=== PATIENT | female | born 1950 | race Caucasian/White ===

== ENCOUNTER 2024-02-11 08:37 | Outpatient (CLI) | payer MEDICARE, SELFPAY ==
[2024-02-11 09:31] LABS: Basophils Percent Auto 0.6 % (0.2-1.2); Eosinophils Absolute Auto 0.1 K/mm3 (0-0.3); Eosinophils Percent Auto 2.4 % (0-4.4); Hematocrit 39.7 % (37.0-47.0); Hemoglobin 13.4 g/dL (12.0-15.0); Lymphocytes Absolute Auto 1.93 K/mm3 (0.9-3.2); Lymphocytes Percent Auto 37.8 % (18.3-44.2); Mean Corpuscular HGB Conc 33.8 g/dl (32-36); Mean Corpuscular Volume 91.9 fl (80-100); Mean Platelet Volume 9.3 fl (7.4-10.4); Monocytes Absolute Auto 0.5 K/mm3 (0.1-0.6); Monocytes Percent Auto 9.6 % (2.6-8.5); Neutrophils Absolute Auto 2.5 K/mm3 (1.3-6.7); Neutrophils Percent Auto 49.6 % (45.5-73.1); Platelet Count Result 232 k/mm3 (150-375); Red Blood Count 4.32 M/mm3 (4.2-5.4); White Blood Count 5.1 K/mm3 (4.5-10.0)
[2024-02-11 10:05] LABS: Free T4 Free Thyroxine 1.15 ng/dL (0.78-2.19); Vitamin D 25 Hydroxy 35.8 ng/mL
[2024-02-11 10:22] LABS: Alanine Aminotransferase 14 U/L (6-35); Albumin Level 4.2 g/dL (3.5-5.1); Alkaline Phosphatase 57 U/L (38-126); Anion Gap 1 mmol/L (4-12); Aspartate Amino Transferase 23 U/L (14-36); Bilirubin,Total 0.9 mg/dL (0.2-1.3); Blood Urea Nitrogen 12 mg/dL (7-17); Carbon Dioxide 32 mmol/L (22-30); Chloride 108 mmol/L (98-107); Cholesterol 146 mg/dL (0-200); Estimated Glomerular Filt Rate > 60; Glucose 93 mg/dL (65-110); HDL Direct 49 mg/dL; Potassium 3.6 mmol/L (3.4-5.0); Sodium 141 mmol/L (137-145); Triglycerides 128 mg/dL (<150)
[2024-02-11 10:33] LABS: LDL Cholesterol Direct 59 mg/dL
[2024-02-11 11:29] LABS: Folic Acid 17.7 ng/mL (2.76->20)
== END 2024-02-11 08:38 | disposition home or self-care (01) ==
LOC: ANHLAB 08:43
PROVIDERS: PCP Emergency Medicine; Visit Provider Internal Medicine
DX: E78.5 Hyperlipidemia, unspecified (principal); E55.9 Vitamin D deficiency, unspecified; E79.89 Other specified disorders of purine and pyrimidine metabolism
CPT/HCPCS: 36415; 80053; 80061; 82306; 82607; 82746; 84439; 84443; 85025

== ENCOUNTER 2024-06-27 10:37 | Outpatient (CLI) | payer MEDICARE, SELFPAY ==
--- OUTSIDE RECORDS SUMMARY | 2024-06-27 10:51 | XMS_ITS | Data Portability ---
Author Organization [facility] Address [address] [place] [address] Care Team Providers Care Male Infertility Specialist Name Role Phone LISHANOHEMYLainey AURELIANO Primary Care Provider [phone] Assessment Encounter Date Assessment Date Assessment LastModified by Organization Details LastModified Time 06/05/2023 06/05/2023 Annual gynecological exam performed. Patient will come back in a year unless there are new symptoms. Not available 06/05/2023 11:17:20 Plan of Treatment Reminders Order Date Submit Date Provider Last Modified By Organization Details Last Modified Time Details Appointments None record ed. Lab None record ed. Referral None record ed. Procedures None record ed. Surgeries None record ed. Imaging None record ed. Medication Orders None record ed. Patient TargetsNo targets recorded. Patient InstructionsNo instructions recorded. Reason for Referral None Reported. Procedures Surgical History Date Name Laterality Status Provider Name and Address Organization Details Recorded Time 02/08/19 00 Date of Last Pap Smear completed [facility] 06/05/2023 11:19:47 02/08/18 92 [facility]/05[facility]23 11:22:48 08/08/18 72 [facility] 06/05/2023 11:22:07 Tubal Ligation completed [facility] 06/05/2023 11:22:20 Imaging Results None recorded. Procedure Notes None recorded. Medical Equipment None Reported. Allergies Allergen ID Allergen Name Allergen Category Reaction Reaction Severity Criticality Documentation Date Start Date Code Code System Note Provider Name and Address Organization Details Recorded Time 60372 codeine medicatio n Not available Not available Not available 06/05/2023 2670 RxNorm Flores [facility] 11:18:40 Medications Name Sig Start Date Stop Date Status Note LastModified by Organization Details LastModified Time atorvastatin 10 mg tablet active Not Available Not Available Not Available nifedipine ER 30 mg tablet,extende d release Take 1 tablet every day by oral route. active Not Available Not Available No t Available calcium active Not Available Not Avail able Not Available Vitals Date Recorded Body height Body mass index (BMI) Body weight Systolic blood pressure Diastolic blood pressure Provider Name and Address Organization Details Last Updated DateTime 06/05/2023 162.56 cm 28.2 kg/m2 11489.59 g 164 mm[Hg] 84 mm[Hg] Flores [facility] 11:18:22 Social History Question Answer Notes LastModified by Organizat ion Details LastModified Time Tobacco Smoking Status Never Smoker [facility] 06/05/2023 11:21:46 Are You Blind Or Do You Have Difficulty Seeing? No Information not available 06/05/2023 Are You Deaf Or Do You Have Serious Difficulty Hearing? No Information not available 06/05/2023 Do You Have Difficulty Walking Or Climbing Stairs? No Information not available 06/05/2023 Sex: Unknown Functional Status Question Answer Note LastModified by Organizat ion Details LastModified Time What is your level of alcohol consumption? Occasional Information not available 06/05/2023 Are you able to walk? YESWOREST Information not available 06/05/2023 Are you able to care for yourself? Yes Information not available 06/05/2023 Do you have difficulty dressing or bathing? No Information not available 06/05/2023 Mental Status None recorded. Family History Nothing Reported. Medical History Condition Response Allergies (Food, seasonal, environmental ) N Other N Breast Cancer N Drug/Latex Allergies/Reactions N Blood Transfusion N Dermatologic Disorders N Lung Disease N Defects or Inherited Disease N Breast Problem N Gestational Diabetes N Hematologic disorders N Anesthesia Complications N History of STI N Deep Vein Thrombosis N Polycystic ovary syndrome N Anxiety Disorder N Autoimmune disease N Arthritis N Infertility N Polyps N Acid Reflux (GERD) N History of abnormal pap N Cancer N Stroke N Varicosities N Neurologic/Epilepsy N Endometriosis N High Cholesterol Y Headaches N Fibromyalgia N Kidney Disease N Heart Problems N Kidney or Bladder Problems N Thyroid Problems N GI Problems N Eating Disorder N Anemia N Art (IVF or FET) N Psychiatric Illness N Ovarian Cancer N Diabetes N Pulmonary (TB, Asthma) N Hepatitis/Liver Disease N No Past Medical History N Eczema N Urinary Tract Infection N Abuse/Domestic Violence N Asthma N Trauma/Violence N Depression/ depression N Heart Disease N Pre-Eclampsia N Hypertension Y Osteoporosis N Thrombophilias N Gynecological History Statement/Question Response If Post Menopausal, Age at Menopause 48 Abnormal Pap N Sexually Active? Y STIs/STDs N Menses Monthly N Age of first menstrual cycle 15 HPV Vaccine N Date of Last Pap Smear 02/08/1999 Sexual Problems? N Current Control Method Menopause LMP Unknown Obstetrics History GPAL:G 1 P 1 0 0 1 Type Value Full Term 1 Living 1 Total 1 Past Encounters Encounter ID Performer Location Encounter Start Date Encounter Closed Date Diagnosis/Indication Diagnosis SNOMED-CT Code Diagnosis ICD10 Code Diagnosis Note [id number] Consuelo Saucedo , [facility] [address] [address] 06/05/2023 10:50:05 06/05/2023 11:45:32 Gynecologic examination 75291996 Z01.419 Take Calcium with Vitamin D 12-1500mg daily. Do monthly self breast exams. It is advised to get annual flu shot in the fall and she could obtain at [facility] or [facility] care clinic. If you haven't received the Tdap vaccine in the last 10 years you should obtain one as well. Have mammogram yearly, bone density every 2-3 years and colonoscop y every 5-10 years depending on findings and history. Engage in daily exercise of low impact aerobic exercise 45-60 minutes 4-5 times weekly. Avoid tobacco and illicit drugs as well as using moderation with alcohol intake less than 1-2 8 oz beverages daily. This lifestyle behavior pattern will lead to less health conditions and longer life span. If BMI greater than 25 weight watchers or dietary consult advised. Questions have been answered. Patient appears to understand instructio ns, but if you have any further questions call or respond to this email Pap/hpv USPSTF recommends against screening for cervical cancer in women older than 65yo, those who've had a hysterecto my for non-cancer indication s, & who have had adequate prior screening & are not otherwise at high risk for cervical cancer. STD Screen declinedGe netic Screen discussedC olon Screen PCPDexa Screen [facility] PCP RTO if any parts consultant/female related issues.Con tinue q1-2yr mammo screeings. Continue yearly visits with PCP Screening mammography 24 [id number] Z12.31 Completed per pt via PCP orders Health Concerns Section Related Observation LastModified by Organization Detai ls LastModified Time None Recorded Concern Status LastModified by Organization Details LastModified Time None Recorded Advance Directives Directive None Recorded Payers Encounter Date Sequence Insurance Name Policy Number Policy Walton Covered Member ID Walton Member ID Guarantor Name 06/05/2023 1 [facility] (MEDICARE REPLACEMENT/A DVANTAGE - HMO) [id number] Maeve Garcia [id number] Maeve Garcia Notes Date Note Type Note Provider Name and Address Organization Details Recorded Time 06/05/2023 text/html Annual Fish And Wildlife Warden Post-MenopausalRe ported bypatient.Menopau rené Symptoms:no menopausal symptoms; normal vaginal lubrication Vaginal Bleeding:history of menopause having occurred; no history of post menopausal bleeding Urinary Symptoms:no hematuria; no incontinence; no nocturia; no urinary frequency Vulva:no genital lesion; no vulvar atrophy Vagina:normal vaginal discharge; no vaginal atrophy Breast:no breast lump; no nipple discharge; no breast pain Sexual Complaints:no sexual complaints Psychological Symptoms:no depression; no anxiety Preventive Measures:encourag e regular mammograms starting age 40; encourage self breast examination; encourage regular exercise; encourage no tobacco use; mammogram performed within the past year; history of recent colonoscopy Consuelo Saucedo, [facility] [address], [place], [address], [facility] 06/05/2023 11:45:04 OBGyn Episode Ob Episode Information Episode Created Date Number of Fetuses Patient Bloodtype Patient rh Status Prepregnancy Weight lbs Domestic Partner Domestic Partner Phone Father Name Aircraft Mechanic Electrical And Radio Status 06/05/19 24 1 CLOSED Fetus Data First Name Last Name Admitted to NICU Weight (g) Sex Living Outcome Pediatric Complications Fetus ID Race Codes Race Delivery Type 2806.37 3704 M Full Term [id number] Vaginal Delivery Arnold Calculation Initial Arnold Date Initial Exam Date Initial Exam Provider Initial Ultrasound Date Last Menstrual Period Date Ultra Sound Weeks Gestation 0 Eighteen To Twenty Week Arnold Update Ultra Sound Date Fundal Height At Umbil Quickening Date Ultra Sound Latest Weeks Gestation Final Arnold Confirmed By Final Arnold Confirmed Date Final Arnold Date Ultra Sound Latest Days Gestation 0 0 Menstrual History Last Menstrual Date Menses Monthly On Bcp Conception Prior Menses Frequency Hcg Plus Date Menarche Onset Age Delivery Information Delivery Date Delivery Type Labor Anesthesia Weeks Gestation Incision Type Labor Labor Length Hrs Delivered By Post Complications Tubal Sterilization Discharge Date Comments 2 Discharge Information Feeding Method Contraceptive Method Maternal HG B and HCT Levels
[2024-06-27 11:26] LABS: Basophils Percent Auto 0.6 % (0.2-1.2); Eosinophils Absolute Auto 0.1 K/mm3 (0-0.3); Hematocrit 38.8 % (37.0-47.0); Hemoglobin 12.8 g/dL (12.0-15.0); Immature Granulocyte Absolute 0.01 K/mm3 (0.00-0.031); Immature Granulocyte Percent A 0.2 % (0-0.5); Lymphocytes Absolute Auto 1.48 K/mm3 (0.9-3.2); Lymphocytes Percent Auto 30.2 % (18.3-44.2); Mean Corpuscular Hemoglobin 30.5 pg (26-34); Mean Corpuscular Volume 92.6 fl (80-100); Mean Platelet Volume 9.1 fl (7.4-10.4); Monocytes Absolute Auto 0.5 K/mm3 (0.1-0.6); Monocytes Percent Auto 9.2 % (2.6-8.5); Neutrophils Absolute Auto 2.8 K/mm3 (1.3-6.7); Neutrophils Percent Auto 57.8 % (45.5-73.1); Platelet Count Result 241 k/mm3 (150-375); Red Blood Count 4.19 M/mm3 (4.2-5.4); Red Cell Distribution Width 12.5 % (11.5-14.5); White Blood Count 4.9 K/mm3 (4.5-10.0)
[2024-06-27 11:46] LABS: Alanine Aminotransferase 18 U/L (6-35); Albumin Level 4.1 g/dL (3.5-5.1); Alkaline Phosphatase 48 U/L (38-126); Anion Gap 7 mmol/L (4-12); Aspartate Amino Transferase 26 U/L (14-36); Bilirubin,Total 0.7 mg/dL (0.2-1.3); Blood Urea Nitrogen 12 mg/dL (7-17); Calcium 8.7 mg/dL (8.4-10.2); Carbon Dioxide 25 mmol/L (22-30); Chloride 109 mmol/L (98-107); Cholesterol 155 mg/dL (0-200); Estimated Glomerular Filt Rate > 60; Glucose 113 mg/dL (65-110); HDL Direct 51 mg/dL; Potassium 3.8 mmol/L (3.4-5.0); Sodium 141 mmol/L (137-145); Triglycerides 188 mg/dL (<150)
[2024-06-27 11:57] LABS: LDL Cholesterol Direct 61 mg/dL
[2024-06-27 11:59] LABS: Free T4 Free Thyroxine 1.11 ng/dL (0.78-2.19); Vitamin D 25 Hydroxy 37.4 ng/mL
[2024-06-27 12:52] LABS: Folic Acid 19.9 ng/mL (2.76->20)
== END 2024-06-27 10:38 | disposition home or self-care (01) ==
LOC: ANHLAB 10:38
PROVIDERS: PCP Internal Medicine; Visit Provider Internal Medicine
DX: E78.5 Hyperlipidemia, unspecified (principal); E55.9 Vitamin D deficiency, unspecified; R79.89 Other specified abnormal findings of blood chemistry
CPT/HCPCS: 36415; 80053; 80061; 82306; 82607; 82746; 84439; 84443; 85025

== ENCOUNTER 2024-09-11 09:03 | Outpatient (CLI) | payer MEDICARE, SELFPAY ==
--- NOTE | ~2024-09-11 | MM_ITS ---
EXAMINATION: MM screening skyla BI w lemuel HISTORY: Screening TECHNIQUE: Craniocaudal and mediolateral oblique 3-D tomosynthesis images were obtained and synthetic 2-D images were generated. CAD analysis was submitted and interpreted. COMPARISON: None available. BREAST PARENCHYMAL COMPOSITION: The breasts are heterogeneously dense, which may obscure small masses . FINDINGS: There is no evidence of suspicious mass, calcification, or architectural distortion to sug gest malignancy in either breast. IMPRESSION: 1. No mammographic evidence of malignancy. 2. Recommend routine screening mammography in one year. BI-RADS Category 1: Negative Reviewed, dictated and finalized at location B.
== END 2024-09-11 09:04 | disposition home or self-care (01) ==
LOC: ANHIMG 09:06
PROVIDERS: PCP Internal Medicine; Visit Provider Internal Medicine
DX: Z12.31 Encounter for screening mammogram for malignant neoplasm of breast (principal)
CPT/HCPCS: 77063; 77067

== ENCOUNTER 2024-10-24 07:18 | Outpatient (CLI) | payer MEDICARE, SELFPAY ==
[2024-10-24 07:52] LABS: Hematocrit 40.2 % (37.0-47.0); Hemoglobin 13.3 g/dL (12.0-15.0); Immature Granulocyte Percent A 0.4 % (0-0.5); Lymphocytes Absolute Auto 1.72 K/mm3 (0.9-3.2); Mean Corpuscular HGB Conc 33.1 g/dl (32-36); Mean Corpuscular Hemoglobin 30.4 pg (26-34); Mean Corpuscular Volume 92.0 fl (80-100); Nucleated Red Blood Cells Absolute Auto 0.000 K/mm3 (0.0-0.012); Nucleated Red Blood Cells Perc 0.0 % (0.0-0.2); Platelet Count Result 219 k/mm3 (150-375); Red Blood Count 4.37 M/mm3 (4.2-5.4); White Blood Count 5.6 K/mm3 (4.5-10.0)
[2024-10-24 08:12] LABS: Alanine Aminotransferase 14 U/L (6-35); Albumin Level 4.3 g/dL (3.5-5.1); Alkaline Phosphatase 66 U/L (38-126); Anion Gap 6 mmol/L (4-12); Aspartate Amino Transferase 25 U/L (14-36); Bilirubin,Total 0.8 mg/dL (0.2-1.3); Blood Urea Nitrogen 10 mg/dL (7-17); Calcium 8.7 mg/dL (8.4-10.2); Carbon Dioxide 28 mmol/L (22-30); Chloride 106 mmol/L (98-107); Cholesterol 145 mg/dL (0-200); Estimated Glomerular Filt Rate > 60; Glucose 94 mg/dL (65-110); HDL Direct 48 mg/dL; Potassium 4.1 mmol/L (3.4-5.0); Sodium 140 mmol/L (137-145); Total Protein 7.7 g/dL (6.3-8.2); Triglycerides 111 mg/dL (<150)
[2024-10-24 08:49] LABS: Thyroid Stimulating Hormone 4.870 uIU/mL (0.465-4.680)
[2024-10-24 09:10] LABS: Free T4 Free Thyroxine 1.12 ng/dL (0.78-2.19)
[2024-10-24 09:24] LABS: Vitamin B12 785.0 pg/mL (239-931)
== END 2024-10-24 07:19 | disposition home or self-care (01) ==
LOC: ANHLAB 07:21
PROVIDERS: PCP Internal Medicine; Visit Provider Internal Medicine
DX: E78.5 Hyperlipidemia, unspecified (principal); E55.9 Vitamin D deficiency, unspecified; R79.89 Other specified abnormal findings of blood chemistry
CPT/HCPCS: 36415; 80053; 80061; 82306; 82607; 82746; 84439; 84443; 85025

== ENCOUNTER 2024-12-13 06:57 | Emergency (ER) | payer MEDICARE, SELFPAY ==
--- NOTE | ~2024-12-13 | CT_ITS ---
EXAMINATION: CTA abd aorta runoff DATE: 12/13/2024 11:38 INDICATION: Left lower limb pain TECHNIQUE: Computed tomographic angiography (CTA) of the abdominal, pelvis, and both lower extremities was performed with 100 mL Omnipaque 350 intravenous contrast. Automated exposure control and iterative reconstruction technique were employed. The dose-length product was 857.23 mGy-cm. COMPARISON: None. FINDINGS: ABDOMINAL AORTA AND ITS BRANCHES: There is small amount of scattered nonhemodynamically significant atherosclerotic plaque along the normal caliber abdominal aorta. The celiac axis, superior and inferior mesenteric and bilateral renal arteries are all patent with minimal nonhemodynamically significant plaque at the early bifurcation of the left renal artery. PELVIC VASCULATURE: Minimal nonhemodynamically significant atherosclerotic plaque along the right internal iliac artery. The left internal iliac artery and bilateral common and external iliac arteries are widely patent throughout with no evident atherosclerotic plaque. RIGHT LOWER EXTREMITY: Arteries of the right lower limb are widely patent with no evident atherosclerotic plaque and with three-vessel runoff to the ankle. LEFT LOWER EXTREMITY: Arteries of the left lower limb are widely patent with no evident atherosclerotic plaque and with three-vessel runoff to the ankle. ADDITIONAL FINDINGS: Mild dependent atelectasis in bilateral lower lobes. Heart size is normal. No pericardial or pleural effusion. Status post cholecystectomy. Liver, spleen, pancreas, bilateral adrenal glands and kidneys are normal. Mild diverticulosis along the sigmoid colon without adjacent from trace stranding to suggest diverticular colitis. No bowel obstruction. Bladder, uterus and bilateral adnexa are unremarkable. No free intraperitoneal gas or fluid. No pathologically enlarged abdominal or pelvic lymphadenopathy. Moderate to severe lower lumbar spondylosis with chronic appearing mild L4 compression fracture with 20% anterior vertebral disc height loss and Schmorl's node along the superior endplate of L5. IMPRESSION: 1. No hemodynamically significant atherosclerotic plaque major arteries of the abdomen, pelvis or in the arteries of either lower limb with bilateral three- vessel runoff to the ankle. Reviewed, dictated and finalized at location A. [employer] IMPRESSION: 1. No hemodynamically significant atherosclerotic plaque major arteries of the abdomen, pelvis or in the arteries of either lower limb with bilateral three-v essel runoff to the ankle.
--- NOTE | ~2024-12-13 | US_ITS ---
EXAMINATION: US venous doppler LE , 12/13/2024 9:13 [employer] HISTORY: r/o DVT Comparison: None Technique: Goins-scale and color Doppler images were attempted of the lower saphenofemoral junction, common femoral vein,superficial femoral vein, proximal deep femoral vein, proximal deep femoral vein, popliteal vein and posterior tibial veins. Findings: Deep Venous System:Normal flow, augmentation and compressibility. No echogenic thrombus identified. The contralateral saphenofemoral junction appears unremarkable. Superficial Venous SystemNo superficial thrombophlebitis. Soft tissues: Soft tissues are unremarkable. Impression: Negative for DVT. Reviewed, dictated and finalized at location P. RVISOR BRIAR SHOP Impression: Negative for DVT.
[2024-12-13 07:07] VITALS: BP 168/68; PULSE 63; RESP 18; TEMP 36.6; O2SAT 100
--- NOTE | 2024-12-13 08:47 | ED_ITS ---
HPI - Extremity Injury (Lower) General Chief Complaint: Extremity Injury, Lower Stated Complaint: LEG PAIN Time Seen by Provider: 12/13/24 08:17 Source: patient and family ( Felipe) Limitations: no limitations History of Present Illness HPI Narrative: Patient presents with left calf pain that is nonradiating it into left posterior lateral thigh and buttock pain. She denies any karina acute back pain only some chronic pain. No fall, trauma, injury. She is not on anticoagulation. No history of DVT or PE. She denies any edema. She has been taking Tylenol 500 mg tablets q4 hour. She is also on atorvastatin, nifedipine, and Vitamin B12. Related Data Allergies Allergy/AdvReac Type Severity Reaction Status Date / Time codeine AdvReac Intermediate syncope Verified 12/13/24 08:56 PMFSH Past Medical History Medical History On statin therapy Social History Social History Social History: Living arrangements: with family Additional living arrangements comments: Felipe Exam 2 Narrative: GENERAL: Well-appearing, well-nourished, and in no acute distress. HEAD: Normocephalic, atraumatic. EYES: Non injected, non icteric ENT: Nares clear, no rhinorrhea or epistaxis. Gross auditory acuity intact. NECK: Supple. No meningismus. CHEST: Speaking in full sentences. No respiratory distress. HEART: Regular rate and rhythm. . ABDOMEN: Soft, nondistended. EXTREMITIES: Normal range of motion. No lower extremity edema. Strong DP pulse L foot. Compartments soft. No palpable cord. SKIN: Warm, dry, no rash. No overlying skin changes. No ecchymosis. No laceration. NEURO: No focal deficits. Alert and oriented. Answering questions. Following commands. Normal speech without aphasia or dysarthria. PSYCH: Normal mood and affect. Course Vital Signs Vital signs: Vital Signs Temperature 97.8 F 12/13/24 07:07 Pulse Rate 63 12/13/24 07:07 Respiratory Rate 18 12/13/24 07:07 Blood Pressure 168/68 H 12/13/24 07:07 Pulse Oximetry 100 12/13/24 07:07 Oxygen Delivery Room Air 12/13/24 07:07 Temperature 97.8 F 12/13/24 07:07 Pulse Rate 74 12/13/24 09:46 Respiratory Rate 18 12/13/24 09:46 Blood Pressure 179/64 H 12/13/24 09:46 Pulse Oximetry 96 12/13/24 09:46 Oxygen Delivery Room Air 12/13/24 07:07 MDM - Extremity Injury (Lower) MDM Narrative Medical decision making narrative: Patient presents with left leg pain. She reports it started in her left calf that has progressed proximally to the knee and posterior lateral thigh over the past 4 days. No fall/trauma/injury. In the emergency department she is afebrile vital signs notable for hypertension. CBC with mild abnormalities on the differential but otherwise without anemia, thrombocytopenia. Normal renal function. BNP mildly elevated but not to a degree to suggest acute heart failure especially given the reference range of the assay for patient's age. Considered vascular insufficiency/peripheral vascular disease but no symptoms of claudication and good pulses distally with no skin or temperature changes. Patient reports some chronic back pain but otherwise reports distribution of pain in her calf and posterio-lateral left thigh. Still having pain after analgesic medication. CTA run off study ordered. There is unexpected IT downtime during patient's ED visit which lengthen's stay. Otherwise work up unremarkable. Stable for DC. Advised follow up with PCP. Prescribed OTC analgesic medication and a muscle relaxer to use QHS, short course. Differential Diagnosis Differential diagnosis: Likely other (PAD/ischemic limb; DVT, symptomatic anemia, thrombocytopenia, electrolyte abnormality, rhabdomyolysis; sprain/strain; myalgia; neuropathy; radiculopathy; sciatica) Lab Data Attestation: I reviewed the patient's lab results. 12/13/24 09:09 12/13/24 09:09 Labs: Lab Results 12/13/24 Range/Units 09:09 WBC 5.1 (4.5-10.0) K/mm3 RBC 4.35 (4.2-5.4) M/mm3 Hgb 13.4 (12.0-15.0) g/dL Hct 39.1 (37.0-47.0) % MCV 89.9 (80-100) fl MCH 30.8 (26-34) pg MCHC 34.3 (32-36) g/dl RDW 11.9 (11.5-14.5) % Plt Count 235 (150-375) k/mm3 MPV 8.9 (7.4-10.4) fl Immature Gran % (Auto) 0.2 (0-0.5) % Neut % (Auto) 54.9 (45.5-73.1) % Lymph % (Auto) 33.3 (18.3-44.2) % Imperial % (Auto) 8.6 H (2.6-8.5) % Eos % (Auto) 2.2 (0-4.4) % Baso % (Auto) 0.8 (0.2-1.2) % Lymph # (Auto) 1.70 (0.9-3.2) K/mm3 Imperial # (Auto) 0.4 (0.1-0.6) K/mm3 Eos # (Auto) 0.1 (0-0.3) K/mm3 Baso # (Auto) 0.0 (0.0-0.1) K/mm3 Abs Immat Gran (auto) 0.01 (0.00-0.031) K/mm3 Absolute Neuts (auto) 2.8 (1.3-6.7) K/mm3 Absolute Nucleated RBC 0.000 (0.0-0.012) K/mm3 Nucleated RBC % 0.0 (0.0-0.2) % PT 13.0 (11.1-14.7) Seconds INR 1.0 APTT 27.9 (22.3-36.8) Seconds Sodium 137 (137-145) mmol/L Potassium 3.4 (3.4-5.0) mmol/L Chloride 106 (98-107) mmol/L Carbon Dioxide 24 (22-30) mmol/L Anion Gap 7 (4-12) mmol/L BUN 14 (7-17) mg/dL Creatinine 0.62 L (0.7-1.0) mg/dL Estim Creat Clear Calc 66 ml/min Estimated GFR > 60 (59 - ) Glucose 102 (65-110) mg/dL Calcium 9.1 (8.4-10.2) mg/dL Magnesium 1.9 (1.6-2.3) mg/dL Total Bilirubin 1.1 (0.2-1.3) mg/dL AST 26 (14-36) U/L ALT 16 (6-35) U/L Alkaline Phosphatase 53 (38-126) U/L Total Creatine Kinase 125 (30-135) U/L NT-Pro-B Natriuret Pep 213 H (19.9-100) pg/mL Total Protein 7.9 (6.3-8.2) g/dL Albumin 4.6 (3.5-5.1) g/dL Imaging Data Radiologist's impression: CTA abd/pelvis runoff study (interpretation initially handwritten due to IT downtime issues): No sign. stenosis with (?) 3 vessel runoff. Impressions Venous Doppler Study 12/13/24 09:43 Impression: Negative for DVT. Aorta w/Runoff CTA 12/13/24 13:55 IMPRESSION: 1. No hemodynamically significant atherosclerotic plaque major arteries of the abdomen, pelvis or in the arteries of either lower limb with bilateral three- vessel runoff to the ankle. Discharge Plan Discharge Clinical Impression: Left leg pain Patient Disposition: Home Condition: Stable Instructions: Antibiotic Form, Leg Pain (ED) Additional Instructions: No clear cause of your symptoms based on your labs and imaging which included an Ultrasound (negative for DVT, blood clot in veins) as well as CTA of your abdominal aortic blood vessel and run off study in the legs looking at the arteries. Follow up with your primary care physician as this may require alternative pain meds, physical therapy, advanced imaging/work, etc. . In the interim, it is safe to take both acetaminophen/Tylenol (maximum 4000mg/day) with NSAIDs like ibuprofen. Return to the ED with new/worsening symptoms. In particular, if you lose control of your bowel/bladder or have numbness/tingling in your genitals. A small dose muscle relaxer may help at night. Patient Language: Irish Prescriptions: New acetaminophen 500 mg capsule 1,000 mg PO Q6H PRN (Reason: pain) Qty: 30 0RF ibuprofen 600 mg tablet 600 mg PO TID PRN (Reason: pain) Qty: 30 0RF methocarbamol 500 mg tablet 500 mg PO HS Qty: 7 0RF Follow-up/Referrals: Yuliana,MD Bakari [Primary Care Provider, Unknown] Time of Disposition: 13:26
--- OUTSIDE RECORDS SUMMARY | 2024-12-13 08:55 | XMS_ITS | Data Portability ---
Author Organization [facility] [place] Address [address] [place] [address] Care Team Providers Care Wheel Truer Name Role Phone LISHANOHEMYLaineyTAEJYOTSNA Primary Care Provider Assessment Encounter Date Assessment Date Assessment LastModified [...] 00 Date of Last Pap Smear completed [facility] 06/05/2023 11:19:47 02/08/18 92 [facility]/05[facility]2023 11:22:48 08/08/18 [address] [facility] 06/05/2023 11:22:07 Tubal Ligation completed [facility] 06/05/2023 11:22:20 Imaging Results None recorded. Procedure Notes None recorded. Medical Equipment None Reported. Allergies Allergen ID Allergen Name Allergen Category Reaction Reaction Severity Criticality Documentation Date Start Date Code Code System Note Provider Name and Address Organization Details Recorded Time 89770 codeine medicatio n Not available Not available Not available 06/05/2023 2670 RxNorm Flores [facility] 11:18:40 Medications Name Sig Start Date [...] Body mass index (BMI) Body weight Systolic And Diastolic Provider Name and Address Organization Details Last Updated DateTime 06/05/2023 162.56 cm 28.2 kg/m2 58354.59 g 164/84 mm[Hg] Flores [facility] 06/05/2023 11:18:22 Social History Question Answer Notes LastModified by AnTuTuizat ion Details LastModified Time Tobacco Smoking Status Never Smoker Flores [facility] 06/05/2023 11:21:46 Are You Blind Or [...] not available 06/05/2023 Are you able to walk independently without assistance or assistive devices? YESWOREST Information not available 06/05/2023 Are you able to care for yourself independently? Yes Information not available 06/05/2023 Do you have difficulty dressing, bathing, grooming, or toileting? No Information not available 06/05/2023 Mental Status [...] Diagnosis SNOMED-CT Code Diagnosis ICD10 Code Diagnosis IMO Codes Diagnosis Note [id number] Consuelo Saucedo , [facility] [address] [address] 06/05/2023 10:50:05 06/05/2023 11:45:32 Gynecologic examination [id number] Z01.419 Take Calcium with Vitamin D 12-1500mg daily. Do monthly self breast exams. It is advised to get annual flu shot in the fall and she could obtain at [facility] or [facility] clinic. If you haven't received the Tdap [...] Screen [facility] PCP RTO if any manager storage/female related issues.Con tinue q1-2yr mammo screeings. Continue yearly visits with PCP Screening mammography 24 625094 Z12.31 Completed per pt via PCP orders Health Concerns Section Related Observation LastModified by Organization Detai ls LastModified Time None Recorded Concern Status LastModified by Organization Details LastModified Time None Recorded Advance Directives Directive None Recorded Payers Insurance Date Sequence Insurance Name Policy Number Policy Walton Covered Member ID Walton Member ID Guarantor Name 06/08/2023 1 [facility] (MEDICARE REPLACEMENT/A DVANTAGE - HMO) [id number] Maeve Garcia [id number] Maeve Garcia Notes Date Note Type Note Provider Name and Address Organization Details Recorded Time 4 text/html Annual Scientific Specialist Post-MenopausalReported by PatientGenitourinary symptomsFor menopausal symptoms, patient reportsno menopausal symptomsandnormal vaginal lubrication. For vaginal bleeding, patient reportshistory of menopause having occurredandno history of post menopausal bleeding. For urinary symptoms, patient reportsno hematuria,no incontinence,no nocturia, andno urinary frequency. For vulva, patient reportsno genital lesionandno vulvar atrophy. For vagina, patient reportsnormal vaginal dischargeandno vaginal atrophy.Breast symptomsFor breast, patient reportsno breast lump,no nipple discharge, andno breast pain.Psychological symptomsFor sexual complaints, patient reportsno sexual complaints. For psychological symptoms, patient reportsno depressionandno anxiety.Preventative measuresFor preventive measures, patient reportsencourage regular mammograms starting age 40,encourage self breast examination,encourage regular exercise,encourage no tobacco use,mammogram performed within the past year, andhistory of recent colonoscopy. Consuelo Saucedo, [facility] [address], [place], [address], [facility] 06/05/2023 11:45:04 OBGyn Episode Ob Episode Information Episode Created Date Number of Fetuses Patient Bloodtype Patient rh Status Prepregnancy Weight lbs Domestic Partner Domestic Partner Phone Father Name Identity Management Consultant Status 06/05/19 24 1 CLOSED Fetus Data First Name Last Name Admitted to NICU Weight (g) Sex Living Outcome Pediatric Complications Fetus ID Race Codes Race Delivery Type 2806.37 3704 M Full Term [id number] Vaginal Delivery Arnold Calculation Initial Arnold Date [...]
--- OUTSIDE RECORDS SUMMARY | 2024-12-13 08:55 | XMS_ITS | Data Portability ---
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 Name Role Phone BAKARI BRIDGES Primary Care Provider [phone] [facility] Fitness Leader Assessment Encounter Date Assessment Date Assessment LastModified by Organization Details LastModified Time 06/15/2023 06/15/2023 12/08/2022: Gluc 119, ALT/AST 39/43 Not available 06/14/2023 18:42:08 11/04/2023 11/04/2023 12/08/2022: Gluc 119, ALT/AST 39/43 06/16/2023: Stable Hep panel/GGT: Neg Not available 11/04/2023 14:10:51 02/22/2024 02/22/2024 12/08/2022: Gluc 119, ALT/AST 39/43 06/16/2023: Stable Hep panel/GGT: Neg 02/11/2024: TSH 6.150H Not available 02/22/2024 10:04:38 07/04/2024 07/04/2024 12/08/2022: Gluc 119, ALT/AST 39/43 06/16/2023: Stable Hep panel/GGT: Neg 02/11/2024: TSH 6.150H 06/27/2024: Gluc 113 TG 188 Not available 07/04/2024 10:57:39 10/31/2024 10/31/2024 12/08/2022: Gluc 119, ALT/AST 39/43 06/16/2023: Stable Hep panel/GGT: Neg 02/11/2024: TSH 6.150H 06/27/2024: Gluc 113 TG 188 10/24/2024: TSH 4.80H, FT4 1.12 Not available 10/31/2024 12:40:48 Plan of Treatment Reminders Order Date Submit Date Provider Last Modified By Organization Details Last Modified Time Details Appointments Any 15 2025 09:15A M Bakari aguilar MD Not available Not available Not available Lab lipid panel, serum 2024 025 [place] [address] [facility], [address] [place], [address], 10/31/2024 12:46:29 CMP, serum or plasma 2024 025 [place] [address] [facility], [address] [place], [address], 10/31/2024 12:46:30 CBC w/ auto diff 2024 025 [place] [address] [facility], [address] [place], [address], 10/31/2024 12:46:30 TSH + free T4, serum [address] [facility], [address] [place], [address], 10/31/2024 12:46:30 vitamin D, 25-hydrox y, total, serum 2024 025 [place] [address] [facility], [address] [place], [address], 10/31/2024 12:46:29 vitamin B12 + folate, serum or blood [address] [facility], [address] [place], [address], 10/31/2024 12:46:29 vitamin D, 25-hydrox y, total, serum 2024 025 [facility], [address] [facility] [place], [address], 10/24/2024 12:51:38 lipid panel, serum 2024 025 [facility], [address] [facility] [place], [address], 10/24/2024 11:07:08 CMP, serum or plasma 2024 025 [facility], [address] [facility] [place], [address], 10/24/2024 11:05:12 CBC w/ auto diff 2024 025 [facility], [address] [place], [address], 10/24/2024 11:07:08 TSH + free T4, serum 2024 025 [facility], [address] [facility] [place], [address], 10/24/2024 11:07:08 vitamin B12 + folate, serum or blood 2024 025 [facility], [address] [facility] [place], [address], 10/24/2024 12:51:37 vitamin D, 25-hydrox y, total, serum [address] [facility], [address] [place], [address], 10/23/2024 10:06:49 lipid panel, serum [address] [facility], [address] [place], [address], 10/23/2024 10:06:49 CMP, serum or plasma 2024 025 [email or web address] [facility], [address] [place], [address], 10/23/2024 10:06:50 CBC w/ auto diff 2024 025 [place] [address] [facility], [address] [place], [address], 10/23/2024 10:06:50 TSH + free T4, serum 2024 025 [place] [address] [facility], [address] [place], [address], 10/23/2024 10:06:50 vitamin B12 + folate, serum or blood 2024 025 [place] [address] [facility], [address] [place], [address], 10/23/2024 10:06:49 vitamin D, 25-hydrox y, total, serum 2023 024 [place] [address] [facility], [address] [place], [address], 11/17/2023 14:54:57 lipid panel, serum 2023 024 SHALINI [facility], [address] [place], [address], 11/08/2023 20:22:43 CMP, serum or plasma 2023 024 SHALINI [facility], [address] [place], [address], 11/08/2023 20:22:49 CBC w/ auto diff 2023 024 SHALINI [facility], [address] [place], [address], 11/08/2023 12:17:46 TSH + free T4, serum 2023 024 [email or web address] [facility], [address] [place], [address], 11/17/2023 14:54:58 vitamin B12 + folate, serum or blood [address] [facility], [address] [place], [address], 11/17/2023 14:54:57 gamma-glu tamyl transfera se (ggt), serum 2023 024 [facility], [address] [place], [address], 06/16/2023 12:33:06 hepatitis panel (A+B+C), acute, serum 2023 024 [facility], [address] [place], [address], 06/16/2023 12:29:21 lipid panel, serum 2023 024 [facility], [address] [place], [address], 06/16/2023 12:32:57 CMP, serum or plasma 2023 024 [facility], [address] [place], [address], 06/16/2023 12:33:02 CBC w/ auto diff 2023 024 [facility], [address] [place], [address], 06/16/2023 11:37:30 TSH + free T4, serum [address] [facility], [address] [place], [address], 06/22/2023 09:30:04 vitamin D, 25-hydrox y, total, serum 2023 024 [place] [address] [facility], [address] [facility] [place], [address], 06/22/2023 09:30:04 vitamin B12 + folate, serum or blood 2023 024 [place] [address] [facility], [address] [facility] [place], [address], 06/22/2023 09:30:04 Referral gynecolog ist referral - Please call patient to schedule an appointme nt. Thank you [address] [facility], [address], [address], [place], [address], 11/01/2024 14:14:25 gynecolog ist referral - Please call patient to schedule an appointme nt. Thank you [address], [address], [place], [address], 10/02/2024 11:18:03 gynecolog ist referral - Please call patient to schedule. [address], [address], [place], [address], 02/22/2024 11:51:03 gynecolog ist referral - Please call patient to schedule. [address], [address], [place], [address], 02/22/2024 11:50:55 gynecolog ist referral [address], [address], [place], [address], 12/16/2023 12:38:52 Procedures colonosco py screening (PROC) 2023 024 [email or web address] Davian Figueroa MD, [address] [place], [address], 11/04/2023 14:46:23 colonosco py screening (PROC) 2023 024 [email or web address] Davian Figueroa MD, [address] [place], [address], 12/20/2023 09:45:59 Surgeries None recorded. Imaging MAMMO, screening , digital, bilateral - Please call patient to schedule. To be performed on or around 5 2024 025 [email or web address] [facility], [address], [place], [address], 07/04/2024 13:51:03 MAMMO, screening , digital, bilateral - Please call patient to schedule. To be performed on or around 5 2024 025 [email or web address] [facility], [address], [place], [address], 05/25/2024 11:34:32 US, liver - no auth required 2023 [email or web address] [place] [address] ([facility]), [address] [place] [address], [address], 06/30/2023 09:01:12 Medication Orders None recorded. Patient TargetsNo targets recorded. Patient Instructions Encounter Date Encounter Id Patient Instructions Last Modified By Organization Details Last Modified Time 06/15/2023 [id number] dementia rating scale-2* [email or web address] 2 Not available 06/15/2023 18:17:07 depression screening* [email or web address] 2 Not available 06/15/2023 18:17:07 alcohol misuse* [email or web address] 2 Not available 06/15/2023 18:17:07 multi-dimensiona l health assessment questionnaire* [email or web address] Not available 06/16/2023 13:52:03 advance directiv es: care instructions [email or web address] 2 Not available 06/15/2023 18:17:06 advance care planning: care instructions [email or web address] 2 Not available 06/15/2023 18:17:06 [place] Advance Directives mattya 2 Not available 06/15/2023 18:17:06 Personalized Hea lth Plan and Screening Recommendations Advance Directives - Do you have one? No You have indicated that you are capable of preparing your advance care directive Advance Directives - Do we have your advance directive on file in your health record? Primary Prevention/Interven tion (prevents or decreases the chance of common diseases from occurring) Smoking Risk: Non Smoker Never smoked Alcohol Misuse Screening: Negative Non drinker Weight: Appropriate Physical activity: Need more exercise/physical activity minimum of 10-20 minutes of activity that causes mild breathlessness/day Nutrition: Average Refer to attached handout Heart-Healthy Diet: After Your Visit Fall Risk (screened today): Low Refer to attached handout Preventing Falls: After your Visit Vaccines Pneumococcal: Recommended today Influenza: Your next one in the fall of this year Chronic Disease Risks Stroke: Intermediate Risk Eat heart healthy diet Heart Attack: Intermediate Risk Eat heart healthy diet Clogging of the Arteries: Intermediate Risk Eat heart healthy diet Diabetes: Low Risk I have no recommendations Secondary Prevention/Interven tion (detects treatable diseases before they may cause symptoms, disability, or ) Breast Cancer Screening with mammogram: Your next mammogram: 04/22/24 Cervical/Uterine/Ov ashley Cancer Screening: No screening necessary Osteoporosis Screening: Your next DEXA in: 2 years Date Screening Last Performed:04/23/2023 Colon Cancer Screening: Colonoscopy Date Screening Last Performed: 11/05/2018 Eye Disease Screening: Recommended today Dementia Risk: Low I have no recommendations Depression Screening: Negative i have no reccomendations Not available 06/15/2023 17:36:35 10/31/2024 [id number] dementia rating scale-2* [email or web address] Not available 11/22/2024 18:40:46 multi-dimensiona l health assessment questionnaire* [email or web address] Not available 11/22/2024 18:40:52 care plan* [email or web address] Not available 18:40:40 advance directiv es: care instructions [email or web address] 2 Not available 10/31/2024 12:34:47 advance care planning: care instructions [email or web address] 2 Not available 10/31/2024 12:34:47 [place] Advance Directives stanley 2 Not available 10/31/2024 12:34:47 Personalized Hea lth Plan and Screening Recommendations Advance Directives - Do you have one? No I recommend consulting with an Senior Quality Technician, family member, or friend to assist you. Advance Directives - Do we have your advance directive on file in your health record? No, please bring in a copy at your earliest convenience Primary Prevention/Interven tion (prevents or decreases the chance of common diseases from occurring) Smoking Risk: Non Smoker Alcohol Misuse Screening: Negative Weight: Appropriate Physical activity: Appropriate physical activity minimum of 10-20 minutes of activity that causes mild breathlessness/day Nutrition: Good Refer to attached handout Heart-Healthy Diet: After Your Visit Fall Risk (screened today): Low Refer to attached handout Preventing Falls: After your Visit Vaccines Pneumococcal: No further needed Influenza: Recommended today Chronic Disease Risks Stroke: Intermediate Risk Active diagnosis, Continue current treatment plan Heart Attack: Intermediate Risk Active diagnosis, Continue current treatment plan Clogging of the Arteries: Intermediate Risk Active diagnosis, Continue current treatment plan Diabetes: Intermediate Risk Active diagnosis, Continue current treatment plan Secondary Prevention/Interven tion (detects treatable diseases before they may cause symptoms, disability, or ) Breast Cancer Screening with mammogram: Recommended today Cervical/Uterine/Ov ashley Cancer Screening: Recommended today Osteoporosis Screening: Recommended today Date Screening Last Performed: 04/23/23___ Colon Cancer Screening: No screening necessary Date Screening Last Performed: 11/03/23___ Eye Disease Screening: Recommended today Dementia Risk: Low I have no recommendations Depression Screening: Negative Active diagnosis, Continue current treatment plan Not available 10/31/2024 12:43:41 Reason for Referral Topographic Computator Referral for Gy necologic examination Referring Physician: Bakari Bridges, Internal Medicine, Encounter Date: 06/15/2023 Topographic Computator Referral for Gy necologic examination Please call patient to schedule. Referring Physician: Bakari Bridges, Internal Medicine, Encounter Date: 11/04/2023 Topographic Computator Referral for Gy necologic examination Please call patient to schedule. Referring Physician: Bakari Bridges Internal Medicine, Encounter Date: 02/22/2024 Topographic Computator Referral for Gy necologic examination Please call patient to schedule an appointment. Thank you Referring Physician: Bakari Bridges Internal Medicine, Encounter Date: 07/04/2024 Topographic Computator Referral for Gy necologic examination Please call patient to schedule an appointment. Thank you Referring Physician: Bakari Bridges Internal Medicine, Encounter Date: 10/31/2024 Results Created Date Observation Date Name Description Value Unit Range Abnormal Flag Note LastModifiedBy Organization Detail LastModifiedTime 06/16/19 24 06/16/2023 CBC/C OMPLE TE BLD COUNT W/DIF F white blood cells 4.4 x10'3 /uL 4.2-10 .8 Not Available [facility] (Lab) [address] [place], [address], 06/16/2023 11:37:30 06/16/19 24 06/16/2023 CBC/C OMPLE TE BLD COUNT W/DIF F red blood cells 4.18 x10'6 /uL 3.80-5 .20 Not Available [facility] (Lab) [address] [place], [address], 06/16/2023 11:37:30 06/16/19 24 06/16/2023 CBC/C OMPLE TE BLD COUNT W/DIF F hemoglobin 13.1 g/dL 12.0-1 5.6 Not Available [facility] (Lab) [address] [place], [address], 06/16/2023 11:37:30 06/16/19 24 06/16/2023 CBC/C OMPLE TE BLD COUNT W/DIF F hematocrit 38.9 % 35.7-4 5.7 Not Available [facility] (Lab) [address] [place], [address], 06/16/2023 11:37:30 06/16/19 24 06/16/2023 CBC/C OMPLE TE BLD COUNT W/DIF F mean red cell volume 93.1 fL 82.0-9 9.0 Not Available [facility] (Lab) [address] [place], [address], 06/16/2023 11:37:30 06/16/19 24 06/16/2023 CBC/C OMPLE TE BLD COUNT W/DIF F mean red cell hemoglobin 31.3 pg 27.0-3 3.0 Not Available [facility] (Lab) [address] [place], [address], 06/16/2023 11:37:30 06/16/19 24 06/16/2023 CBC/C OMPLE TE BLD COUNT W/DIF F mean RBC HGB concentratio n 33.7 g/dL 31.0-3 6.0 Not Available [facility] (Lab) [address] [place], [address], 06/16/2023 11:37:30 06/16/19 24 06/16/2023 CBC/C OMPLE TE BLD COUNT W/DIF F red cell distribution width 12.1 % 11.8-1 5.5 Not Available [facility] (Lab) [address] [place], [address], 06/16/2023 11:37:30 06/16/19 24 06/16/2023 CBC/C OMPLE TE BLD COUNT W/DIF F platelets 242 x10'3 /uL 150-40 0 Not Available [facility] (Lab) [address] [place], [address], 06/16/2023 11:37:30 06/16/19 24 06/16/2023 CBC/C OMPLE TE BLD COUNT W/DIF F mean platelet volume 9.5 fL 9.0-12 .4 Not Available [facility] (Lab) [address] [place], [address], 06/16/2023 11:37:30 06/16/19 24 06/16/2023 CBC/C OMPLE TE BLD COUNT W/DIF F neutrophils 49.4 % 39.0-7 2.0 Not Available [facility] (Lab) [address] [place], [address], 06/16/2023 11:37:30 06/16/19 24 06/16/2023 CBC/C OMPLE TE BLD COUNT W/DIF F lymphocytes 37.9 % 16.0-4 7.0 Not Available [facility] (Lab) [address] [place], [address], 06/16/2023 11:37:30 06/16/19 24 06/16/2023 CBC/C OMPLE TE BLD COUNT W/DIF F monocytes 10.0 % 5.0-12 .0 Not Available [facility] (Lab) [address] [place], [address], 06/16/2023 11:37:30 06/16/19 24 06/16/2023 CBC/C OMPLE TE BLD COUNT W/DIF F eosinophils 1.8 % 1.0-7. 0 Not Available [facility] (Lab) [address] [place], [address], 06/16/2023 11:37:30 06/16/19 24 06/16/2023 CBC/C OMPLE TE BLD COUNT W/DIF F basophils 0.7 % 0.0-2. 0 Not Available [facility] (Lab) [address] [place], [address], 06/16/2023 11:37:30 06/16/19 24 06/16/2023 CBC/C OMPLE TE BLD COUNT W/DIF F immature granulocytes 0.2 % 0.00-0 .50 Not Available [facility] (Lab) [address] [place], [address], 06/16/2023 11:37:30 06/16/19 24 06/16/2023 CBC/C OMPLE TE BLD COUNT W/DIF F neutrophils, absolute count 2.16 x10'3 /uL 1.5-8. 0 Not Available [facility] (Lab) [address] [place], [address], 06/16/2023 11:37:30 06/16/19 24 06/16/2023 CBC/C OMPLE TE BLD COUNT W/DIF F lymphocytes, absolute count 1.66 x10'3 /uL 1.07-3 .43 Not Available [facility] (Lab) [address] [place], [address], 06/16/2023 11:37:30 06/16/19 24 06/16/2023 CBC/C OMPLE TE BLD COUNT W/DIF F monocytes, absolute count 0.44 x10'3 /uL 0.29-0 .99 Not Available [facility] (Lab) [address] [place], [address], 06/16/2023 11:37:30 06/16/19 24 06/16/2023 CBC/C OMPLE TE BLD COUNT W/DIF F eosinophils, absolute count 0.08 x10'3 /uL 0.02-0 .53 Not Available [facility] (Lab) [address] [place], [address], 06/16/2023 11:37:30 06/16/19 24 06/16/2023 CBC/C OMPLE TE BLD COUNT W/DIF F basophils, absolute count 0.03 x10'3 /uL 0.01-0 .08 Not Available [facility] (Lab) [address] [place], [address], 06/16/2023 11:37:30 06/16/19 24 06/16/2023 CBC/C OMPLE TE BLD COUNT W/DIF F immature granulocytes ,absolute 0.01 x10'3 /uL 0.00-0 .05 Not Available [facility] (Lab) [address] [place], [address], 06/16/2023 11:37:30 06/16/19 24 06/16/2023 CBC/C OMPLE TE BLD COUNT W/DIF F nucleated red blood cells 0.0 % -0 Not Available [facility] (Lab) [address] [place], [address], 06/16/2023 11:37:30 06/16/19 24 06/16/2023 CBC/C OMPLE TE BLD COUNT W/DIF F NRBC# 0.00 x10'3 /uL Not Available [facility] (Lab) [address] [place], [address], 06/16/2023 11:37:30 06/16/19 24 06/16/2023 VITAM IN D 25-HY DROXY [id number] 50.0 NG/mL 30-100 Vitam in D Statu s: Defic ient: <20 ng/mL Insuf ficie nt: 20-29 ng/mL Suffi cient : 30-10 0 ng/mL Not Available [facility] (Lab) [address] [place], [address], 06/16/2023 12:21:29 06/16/19 24 06/16/2023 HEPAT ITIS ACUTE PANEL hepatitis A IgM antibody NON-RE ACTIVE non-re active For sampl es repor hubert as Borde rline React nova for HAV IgM, it is recom sid d a new speci men be obtai vonda in 2 weeks and retes hubert. Not Available [facility] (Lab) [address] [place], [address], 06/16/2023 12:33:12 06/16/19 24 06/16/2023 HEPAT ITIS ACUTE PANEL hepatitis A virus signal/cutof 0.10 0.00-0 .79 Not Available [facility] (Lab) [address] [place], [address], 06/16/2023 12:33:12 06/16/19 24 06/16/2023 HEPAT ITIS ACUTE PANEL hepatitis B core IgM antibody NON-RE ACTIVE non-re active Not Available [facility] (Lab) [address] [place], [address], 06/16/2023 12:33:12 06/16/19 24 06/16/2023 HEPAT ITIS ACUTE PANEL HBV core IgM signal/cutof f 0.02 0.00-1 .10 Not Available [facility] (Lab) [address] [place], [address], 06/16/2023 12:33:12 06/16/19 24 06/16/2023 HEPAT ITIS ACUTE PANEL hepatitis B surface antigen NON-RE ACTIVE non-re active All speci mens react nova for Hepat itis B Surfa ce Antig en will refle x to refer ral lab confi rmato ry testi ng. Not Available [facility] (Lab) [address] [place], [address], 06/16/2023 12:33:12 06/16/19 24 06/16/2023 HEPAT ITIS ACUTE PANEL HBV surf.antigen signal/cutof f 0.07 0.00-0 .99 Not Available [facility] (Lab) [address] [place], [address], 06/16/2023 12:33:12 06/16/19 24 06/16/2023 HEPAT ITIS ACUTE PANEL hepatitis C antibody NON-RE ACTIVE non-re active All speci mens react nova for Hepat itis C Virus antib yonny will refle x to PCR confi rmato ry testi ng. Pleas e allow 48-72 hours for resul ts. Not Available [facility] (Lab) [address] [place], [address], 06/16/2023 12:33:12 06/16/19 24 06/16/2023 HEPAT ITIS ACUTE PANEL hepatitis C virus signal/cutof 0.01 0.00-0 .99 Not Available [facility] (Lab) [address] [place], [address], 06/16/2023 12:33:12 06/16/19 24 06/16/2023 LIPID PANEL cholesterol 161 mg/dL 140-19 9 NIH VENECIA NSUS RECOM MENDA TION FOR RJ STERO L: ADULT CHILD LOW RISK: <200 <170 BORDE RLINE : <200- 239 ----- HIGH RISK: >240 >200 Not Available [facility] (Lab) [address] [place], [address], 06/16/2023 12:32:57 06/16/19 24 06/16/2023 LIPID PANEL triglyceride s 66 mg/dL 0-150 NIH VENECIA NSUS REPOR T RECOM MENDA TION FOR TRIGL YCERI KADE: ADULT CHILD LOW RISK: <150 ----- BODER LINE: 150-1 99 ----- HIGH RISK: >200 ----- Not Available [facility] (Lab) [address] [place], [address], 06/16/2023 12:32:57 06/16/19 24 06/16/2023 LIPID PANEL HDL cholesterol 68 mg/dL 40- Not Available [facility] (Lab) [address] [place], [address], 06/16/2023 12:32:57 06/16/19 24 06/16/2023 LIPID PANEL LDL cholesterol, calculated 80 mg/dL 0-130 NIH VENECIA NSUS REPOR T RECOM MENDA TIONS FOR LDL: ADULT CHILD LOW RISK <130 <110 (OPTI MAL LDL) <100 ----- BORDE RLINE : 130-1 59 ----- HIGH RISK: >160 >130 A TRIGL YCERI DE RESUL T >400 INVAL IDATE S THE CALCU LATIO N FOR LDL FRACT IONAT ION - THE LDL RESUL T WILL NOT BE REPOR HUBERT. Not Available [facility] (Lab) [address] [place], [address], 06/16/2023 12:32:57 06/16/19 24 06/16/2023 COMPR EHENS NOVA METAB OLIC PANEL sodium 140 mmol/ L 137-14 5 Not Available [facility] (Lab) [address] [place], [address], 06/16/2023 12:33:02 06/16/19 24 06/16/2023 COMPR EHENS NOVA METAB OLIC PANEL potassium 4.0 mmol/ L 3.5-5. 1 Not Available [facility] (Lab) [address] [place], [address], 06/16/2023 12:33:02 06/16/19 24 06/16/2023 COMPR EHENS NOVA METAB OLIC PANEL chloride 106 mmol/ L 98-107 Not Available [facility] (Lab) [address] [place], [address], 06/16/2023 12:33:02 06/16/19 24 06/16/2023 COMPR EHENS NOVA METAB OLIC PANEL carbon dioxide 28 mmol/ L 22-30 Not Available [facility] (Lab) [address] [place], [address], 06/16/2023 12:33:02 06/16/19 24 06/16/2023 COMPR EHENS NOVA METAB OLIC PANEL anion gap 10.0 mmol/ L 14-22 low Not Available [facility] (Lab) [address] [place], [address], 06/16/2023 12:33:02 06/16/19 24 06/16/2023 COMPR EHENS NOVA METAB OLIC PANEL glucose 97 mg/dL 70-99 Not Available [facility] (Lab) [address] [place], [address], 06/16/2023 12:33:02 06/16/19 24 06/16/2023 COMPR EHENS NOVA METAB OLIC PANEL BUN 16 mg/dL 8-19 Not Available [facility] (Lab) [address] [place], [address], 06/16/2023 12:33:02 06/16/19 24 06/16/2023 COMPR EHENS NOVA METAB OLIC PANEL creatinine 0.71 mg/dL 0.66-1 .25 Not Available [facility] (Lab) [address] [place], [address], 06/16/2023 12:33:02 06/16/19 24 06/16/2023 COMPR EHENS NOVA METAB OLIC PANEL GFR >60 Refer ence Range : [place] [facility] GFR Healt hy Adult : >60 mL/mi n/1.7 3 m2 Chron ic Kidne y Disea se: 15-60 mL/mi n/1.7 3 m2 Kidne y Failu re: <15/m L/min /1.73 m2 [email or web address] ov The MDRD study equat ion has not been valid ated in child minoo <18 years of age; pregn ant women ; the elder ly >85 years of age; or in some racia l or ethni c subgr oups, such as [facility] nics. Outsi de the valid ated lachelle eters , estim ated GFR is less accur ate, requi ring clini giovanni judgm ent on a case- by-ca se basis . Clini giovanni inter preta tion for other races and ages must be made by the clini tiffanie. The MDRD study equat ion has not been valid ated for the evalu ation of serum creat inine relat ed to nutri cynthia l statu s or medic ation usage . For perso ns <18 years of age, a pedia tric GFR calcu lator is avail able on the F websi te: https ://andressa w.jackie adam.o rg/pr ofess ional s/kdo qi/gf r_cal culat or Not Available [facility] (Lab) [address] [place], [address], 06/16/2023 12:33:02 06/16/19 24 06/16/2023 COMPR EHENS NOVA METAB OLIC PANEL alkaline phosphatase 57 U/L 38-126 Not Available [facility] (Lab) [address] [place], [address], 06/16/2023 12:33:02 06/16/19 24 06/16/2023 COMPR EHENS NOVA METAB OLIC PANEL alanine aminotransfe rase 18 U/L 0-35 Not Available [facility] (Lab) [address] [place], [address], 06/16/2023 12:33:02 06/16/19 24 06/16/2023 COMPR EHENS NOVA METAB OLIC PANEL aspartate aminotransfe rase 27 U/L 15-37 Not Available [facility] (Lab) [address] [place], [address], 06/16/2023 12:33:02 06/16/19 24 06/16/2023 COMPR EHENS NOVA METAB OLIC PANEL bilirubin, total 0.80 mg/dL 0.20-1 .30 Not Available [facility] (Lab) [address] [place], [address], 06/16/2023 12:33:02 06/16/19 24 06/16/2023 COMPR EHENS NOVA METAB OLIC PANEL calcium 9.3 mg/dL 8.4-10 .2 Not Available [facility] (Lab) [address] [place], [address], 06/16/2023 12:33:02 06/16/19 24 06/16/2023 COMPR EHENS NOVA METAB OLIC PANEL total protein 7.2 g/dL 6.3-8. 2 Not Available [facility] (Lab) [address] [place], [address], 06/16/2023 12:33:02 06/16/19 24 06/16/2023 COMPR EHENS NOVA METAB OLIC PANEL albumin 4.3 g/dL 3.0-4. 4 Not Available [facility] (Lab) [address] [place], [address], 06/16/2023 12:33:02 06/16/19 24 06/16/2023 COMPR EHENS NOVA METAB OLIC PANEL globulin 2.9 g/dL 2.6-4. 2 Not Available [facility] (Lab) [address] [place], [address], 06/16/2023 12:33:02 06/16/19 24 06/16/2023 COMPR EHENS NOVA METAB OLIC PANEL A/G ratio 1.5 ratio 1.0-2. 0 Not Available [facility] (Lab) [address] [place], [address], 06/16/2023 12:33:02 06/16/19 24 06/16/2023 GGT/G -GLUT AMYL TRANS FERAS E gamma-glutam yl transferase 20 U/L 12-43 Not Available [facility] (Lab) [address] [place], [address], 06/16/2023 12:33:06 06/16/19 24 06/16/2023 T4 FREE free T4 0.98 NG/dL 0.78-2 .19 Not Available [facility] (Lab) [address] [place], [address], 06/16/2023 12:35:28 06/16/19 24 06/16/2023 TSH thyroid-stim ulating hormone 3.310 uIU/m L 0.465- 4.680 Not Available [facility] (Lab) [address] [place], [address], 06/16/2023 12:36:28 06/16/19 24 06/16/2023 VITAM IN B12 (JULIANNE KAREN ) vb12 304 pg/mL 239-93 1 Not Available [facility] (Lab) [address] [place], [address], 06/16/2023 12:57:19 06/16/19 24 06/16/2023 FOLAT E, SERUM /PLAS MA folate 17.5 NG/mL 2.76-2 0.0 Not Available [facility] (Lab) [address] [place], [address], 06/16/2023 12:57:21 11/08/19 24 11/08/2023 CBC/C OMPLE TE BLD COUNT W/DIF F white blood cells 4.4 x10'3 /uL 4.2-10 .8 Not Available [facility] (Lab) [address] [place], [address], 11/08/2023 12:17:46 11/08/19 24 11/08/2023 CBC/C OMPLE TE BLD COUNT W/DIF F red blood cells 4.11 x10'6 /uL 3.80-5 .20 Not Available [facility] (Lab) [address] [place], [address], 11/08/2023 12:17:46 11/08/19 24 11/08/2023 CBC/C OMPLE TE BLD COUNT W/DIF F hemoglobin 12.9 g/dL 12.0-1 5.6 Not Available [facility] (Lab) [address] [place], [address], 11/08/2023 12:17:46 11/08/19 24 11/08/2023 CBC/C OMPLE TE BLD COUNT W/DIF F hematocrit 38.3 % 35.7-4 5.7 Not Available [facility] (Lab) [address] [place], [address], 11/08/2023 12:17:46 11/08/19 24 11/08/2023 CBC/C OMPLE TE BLD COUNT W/DIF F mean red cell volume 93.2 fL 82.0-9 9.0 Not Available [facility] (Lab) [address] [place], [address], 11/08/2023 12:17:46 11/08/19 24 11/08/2023 CBC/C OMPLE TE BLD COUNT W/DIF F mean red cell hemoglobin 31.4 pg 27.0-3 3.0 Not Available [facility] (Lab) [address] [place], [address], 11/08/2023 12:17:46 11/08/19 24 11/08/2023 CBC/C OMPLE TE BLD COUNT W/DIF F mean RBC HGB concentratio n 33.7 g/dL 31.0-3 6.0 Not Available [facility] (Lab) [address] [place], [address], 11/08/2023 12:17:46 11/08/19 24 11/08/2023 CBC/C OMPLE TE BLD COUNT W/DIF F red cell distribution width 12.0 % 11.8-1 5.5 Not Available [facility] (Lab) [address] [place], [address], 11/08/2023 12:17:46 11/08/19 24 11/08/2023 CBC/C OMPLE TE BLD COUNT W/DIF F platelets 220 x10'3 /uL 150-40 0 Not Available [facility] (Lab) [address] [place], [address], 11/08/2023 12:17:46 11/08/19 24 11/08/2023 CBC/C OMPLE TE BLD COUNT W/DIF F mean platelet volume 9.3 fL 9.0-12 .4 Not Available [facility] (Lab) [address] [place], [address], 11/08/2023 12:17:46 11/08/19 24 11/08/2023 CBC/C OMPLE TE BLD COUNT W/DIF F neutrophils 58.0 % 39.0-7 2.0 Not Available [facility] (Lab) [address] [place], [address], 11/08/2023 12:17:46 11/08/19 24 11/08/2023 CBC/C OMPLE TE BLD COUNT W/DIF F lymphocytes 31.3 % 16.0-4 7.0 Not Available [facility] (Lab) [address] [place], [address], 11/08/2023 12:17:46 11/08/19 24 11/08/2023 CBC/C OMPLE TE BLD COUNT W/DIF F monocytes 8.4 % 5.0-12 .0 Not Available [facility] (Lab) [address] [place], [address], 11/08/2023 12:17:46 11/08/19 24 11/08/2023 CBC/C OMPLE TE BLD COUNT W/DIF F eosinophils 1.6 % 1.0-7. 0 Not Available [facility] (Lab) [address] [place], [address], 11/08/2023 12:17:46 11/08/19 24 11/08/2023 CBC/C OMPLE TE BLD COUNT W/DIF F basophils 0.5 % 0.0-2. 0 Not Available [facility] (Lab) [address] [place], [address], 11/08/2023 12:17:46 11/08/19 24 11/08/2023 CBC/C OMPLE TE BLD COUNT W/DIF F immature granulocytes 0.2 % 0.00-0 .50 Not Available [facility] (Lab) [address] [place], [address], 11/08/2023 12:17:46 11/08/19 24 11/08/2023 CBC/C OMPLE TE BLD COUNT W/DIF F neutrophils, absolute count 2.54 x10'3 /uL 1.5-8. 0 Not Available [facility] (Lab) [address] [place], [address], 11/08/2023 12:17:46 11/08/19 24 11/08/2023 CBC/C OMPLE TE BLD COUNT W/DIF F lymphocytes, absolute count 1.37 x10'3 /uL 1.07-3 .43 Not Available [facility] (Lab) [address] [place], [address], 11/08/2023 12:17:46 11/08/19 24 11/08/2023 CBC/C OMPLE TE BLD COUNT W/DIF F monocytes, absolute count 0.37 x10'3 /uL 0.29-0 .99 Not Available [facility] (Lab) [address] [place], [address], 11/08/2023 12:17:46 11/08/19 24 11/08/2023 CBC/C OMPLE TE BLD COUNT W/DIF F eosinophils, absolute count 0.07 x10'3 /uL 0.02-0 .53 Not Available [facility] (Lab) [address] [place], [address], 11/08/2023 12:17:46 11/08/19 24 11/08/2023 CBC/C OMPLE TE BLD COUNT W/DIF F basophils, absolute count 0.02 x10'3 /uL 0.01-0 .08 Not Available [facility] (Lab) [address] [place], [address], 11/08/2023 12:17:46 11/08/19 24 11/08/2023 CBC/C OMPLE TE BLD COUNT W/DIF F immature granulocytes ,absolute 0.01 x10'3 /uL 0.00-0 .05 Not Available [facility] (Lab) [address] [place], [address], 11/08/2023 12:17:46 11/08/19 24 11/08/2023 CBC/C OMPLE TE BLD COUNT W/DIF F nucleated red blood cells 0.0 % -0 Not Available [facility] (Lab) [address] [place], [address], 11/08/2023 12:17:46 11/08/19 24 11/08/2023 CBC/C OMPLE TE BLD COUNT W/DIF F NRBC# 0.00 x10'3 /uL Not Available [facility] (Lab) [address] [place], [address], 11/08/2023 12:17:46 11/08/19 24 11/08/2023 LIPID PANEL cholesterol 133 mg/dL 140-19 9 low NIH VENECIA NSUS RECOM MENDA TION FOR RJ STERO L: ADULT CHILD LOW RISK: <200 <170 BORDE RLINE : <200- 239 ----- HIGH RISK: >240 >200 Not Available [facility] (Lab) [address] [place], [address], 11/08/2023 20:22:43 11/08/19 24 11/08/2023 LIPID PANEL triglyceride s 88 mg/dL 0-150 NIH VENCEIA NSUS REPOR T RECOM MENDA TION FOR TRIGL YCERI KADE: ADULT CHILD LOW RISK: <150 ----- BODER LINE: 150-1 99 ----- HIGH RISK: >200 ----- Not Available [facility] (Lab) [address] [place], [address], 11/08/2023 20:22:43 11/08/19 24 11/08/2023 LIPID PANEL HDL cholesterol 52 mg/dL 40- Not Available [facility] (Lab) [address] [place], [address], 11/08/2023 20:22:43 11/08/19 24 11/08/2023 LIPID PANEL LDL cholesterol, calculated 63 mg/dL 0-130 NIH VENECIA NSUS REPOR T RECOM MENDA TIONS FOR LDL: ADULT CHILD LOW RISK <130 <110 (OPTI MAL LDL) <100 ----- BORDE RLINE : 130-1 59 ----- HIGH RISK: >160 >130 A TRIGL YCERI DE RESUL T >400 INVAL IDATE S THE CALCU LATIO N FOR LDL FRACT IONAT ION - THE LDL RESUL T WILL NOT BE REPOR HUBERT. Not Available [facility] (Lab) [address] [place], [address], 11/08/2023 20:22:43 11/08/19 24 11/08/2023 COMPR EHENS NOVA METAB OLIC PANEL sodium 141 mmol/ L 137-14 5 Not Available [facility] (Lab) [address] [place], [address], 11/08/2023 20:22:49 11/08/19 24 11/08/2023 COMPR EHENS NOVA METAB OLIC PANEL potassium 3.9 mmol/ L 3.5-5. 1 Not Available [facility] (Lab) [address] [place], [address], 11/08/2023 20:22:49 11/08/19 24 11/08/2023 COMPR EHENS NOVA METAB OLIC PANEL chloride 106 mmol/ L 98-107 Not Available [facility] (Lab) [address] [place], [address], 11/08/2023 20:22:49 11/08/19 24 11/08/2023 COMPR EHENS NOVA METAB OLIC PANEL carbon dioxide 28 mmol/ L 22-30 Not Available [facility] (Lab) [address] [place], [address], 11/08/2023 20:22:49 11/08/19 24 11/08/2023 COMPR EHENS NOVA METAB OLIC PANEL anion gap 10.9 mmol/ L 14-22 low Not Available [facility] (Lab) [address] [place], [address], 11/08/2023 20:22:49 11/08/19 24 11/08/2023 COMPR EHENS NOVA METAB OLIC PANEL glucose 95 mg/dL 70-99 Not Available [facility] (Lab) [address] [place], [address], 11/08/2023 20:22:49 11/08/19 24 11/08/2023 COMPR EHENS NOVA METAB OLIC PANEL BUN 12 mg/dL 8-19 Not Available [facility] (Lab) [address] [place], [address], 11/08/2023 20:22:49 11/08/19 24 11/08/2023 COMPR EHENS NOVA METAB OLIC PANEL creatinine 0.75 mg/dL 0.66-1 .25 Not Available [facility] (Lab) [address] [place], [address], 11/08/2023 20:22:49 11/08/19 24 11/08/2023 COMPR EHENS NOVA METAB OLIC PANEL GFR >60 Refer ence Range : [place] [facility] GFR Healt hy Adult : >60 mL/mi n/1.7 3 m2 Chron ic Kidne y Disea se: 15-60 mL/mi n/1.7 3 m2 Kidne y Failu re: <15/m L/min /1.73 m2 www.n iddk. nih.g ov The MDRD study equat ion has not been valid ated in child minoo <18 years of age; pregn ant women ; the elder ly >85 years of age; or in some racia l or ethni c subgr oups, such as Hispa nics. Outsi de the valid ated lachelle eters , estim ated GFR is less accur ate, requi ring clini giovanni judgm ent on a case- by-ca se basis . Clini giovanni inter preta tion for other races and ages must be made by the clini tiffanie. The MDRD study equat ion has not been valid ated for the evalu ation of serum creat inine relat ed to nutri cynthia l statu s or medic ation usage . For perso ns <18 years of age, a pedia tric GFR calcu lator is avail able on the [facility] websi te: https ://andressa w.jackie kia.o rg/pr ofess ional s/kdo qi/gf r_cal culat or Not Available [facility] (Lab) [address] [place], [address], 11/08/2023 20:22:49 11/08/19 24 11/08/2023 COMPR EHENS NOVA METAB OLIC PANEL alkaline phosphatase 64 U/L 38-126 Not Available [facility] (Lab) [address] [place], [address], 11/08/2023 20:22:49 11/08/19 24 11/08/2023 COMPR EHENS NOVA METAB OLIC PANEL alanine aminotransfe rase 15 U/L 0-35 Not Available [facility] (Lab) [address] [place], [address], 11/08/2023 20:22:49 11/08/19 24 11/08/2023 COMPR EHENS NOVA METAB OLIC PANEL aspartate aminotransfe rase 22 U/L 15-37 Not Available [facility] (Lab) [address] [place], [address], 11/08/2023 20:22:49 11/08/19 24 11/08/2023 COMPR EHENS NOVA METAB OLIC PANEL bilirubin, total 0.60 mg/dL 0.20-1 .30 Not Available [facility] (Lab) [address] [place], [address], 11/08/2023 20:22:49 11/08/19 24 11/08/2023 COMPR EHENS NOVA METAB OLIC PANEL calcium 9.4 mg/dL 8.4-10 .2 Not Available [facility] (Lab) [address] [place], [address], 11/08/2023 20:22:49 11/08/19 24 11/08/2023 COMPR EHENS NOVA METAB OLIC PANEL total protein 7.0 g/dL 6.3-8. 2 Not Available [facility] (Lab) [address] [place], [address], 11/08/2023 20:22:49 11/08/19 24 11/08/2023 COMPR EHENS NOVA METAB OLIC PANEL albumin 4.1 g/dL 3.0-4. 4 Not Available [facility] (Lab) [address] [place], [address], 11/08/2023 20:22:49 11/08/19 24 11/08/2023 COMPR EHENS NOVA METAB OLIC PANEL globulin 2.9 g/dL 2.6-4. 2 Not Available [facility] (Lab) [address] [place], [address], 11/08/2023 20:22:49 11/08/19 24 11/08/2023 COMPR EHENS NOVA METAB OLIC PANEL A/G ratio 1.4 ratio 1.0-2. 0 Not Available [facility] (Lab) [address] [place], [address], 11/08/2023 20:22:49 11/08/19 24 11/08/2023 VITAM IN D 25-HY DROXY vd25oh 29.5 NG/mL 30-100 low Vitam in D Statu s: Defic ient: <20 ng/mL Insuf ficie nt: 20-29 ng/mL Suffi cient : 30-10 0 ng/mL Not Available [facility] (Lab) [address] [place], [address], 11/08/2023 20:25:49 11/08/19 24 11/08/2023 VITAM IN B12 (JULIANNE KAREN ) vb12 476 pg/mL 239-93 1 Not Available [facility] (Lab) [address] [place], [address], 11/08/2023 20:42:58 11/08/19 24 11/08/2023 FOLAT E, SERUM /PLAS MA folate 16.2 NG/mL 2.76-2 0.0 Not Available [facility] (Lab) [address] [place], [address], 11/08/2023 20:43:08 11/08/19 24 11/08/2023 T4 FREE free T4 1.13 NG/dL 0.78-2 .19 Not Available [facility] (Lab) [address] [place], [address], 11/08/2023 20:50:25 11/08/19 24 11/08/2023 TSH thyroid-stim ulating hormone 4.730 uIU/m L 0.465- 4.680 high Not Available [facility] (Lab) [address] [place], [address], 11/08/2023 20:50:35 06/30/19 24 06/30/2023 US, abdom en, limit ed [facility] [address] [place] [address] Patien t Name: KANWAL CRONIN MAEVE Access ion #: [id number] Sex: F : 1950 5 Dictat ed By: Vidal bobo Payan Attend ing Physic gini: DENYS CORREIA Orderi ng Physic gini: DENYS CORREIA Exam Date: 2023 07:11 AM Exam Name: US ABDOME N SINGLE ORGAN Admitt ing Diagno sis(es ): INDICA TION: elevat ed lfts TECHNI QUE: Multip le real-t steve sonogr aphic images were obtain ed of the right upper quadra nt. COMPAR JESSICA: None. FINDIN GS: The liver demons trates homoge nous increa sed echote xture withou t focal mass lesion s. The liver measur es 14.3 cm. There is no intrah epatic or extrah epatic ductal dilata tion. The common duct measur es 0.6 cm. Post cholec ystect carloz. The right kidney measur es 8.8 cm. The right kidney is normal in contou r, size, and shape. The echoge nicity is normal . There is no hydron ephros is. The pancre as is not well visual ized due to overly ing bowel gas. IMPRES MARCIAL: Post cholec ystect carloz. Hepati c steato sis. Electr onical ly Signed by: Vidal Payan at 2023 09:51: 54 AM Page 1 [facility] (Imaging) [address] [place], [address], 06/30/2023 10:54:08 06/30/19 24 06/30/2023 US, liver No observ ation record ed. [facility] [address] [place], [address], 06/30/2023 11:16:21 09/13/19 25 09/11/2024 imagi ng/di agnos tic resul t No observ ation record ed. [address], [place], [address], 09/12/2024 15:03:33 Result Notes None recorded. 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 Not Available [facility] 3 14:12:45 Dyslipide mylene 594759191 Active 2017 Not Available [facility] 3 14:12:45 Polyp of colon 06545760 Active 2018 next colonoscop y 2019 Not Available [facility] 3 14:12:45 Vitamin D deficienc y 81826347 Active 2021 Bakari bobo MD [address], [place], [address] , [employer] [facility] [employer] [facility] 5 16:47:47 Essential hypertens ion 52275222 Active 2022 Bakari bobo MD [address], [place], [address] , [employer] [facility] [employer] [facility] 5 16:47:47 Hyperlipi demia 38119561 Active 2022 Bakari bobo MD [address], [place], [address] , [employer] [facility] [employer] [facility] 5 16:47:47 Serum vitamin B12 below reference range 076032990 Active 2022 Bakari bobo MD [address], [place], [address] , [employer] [facility] [employer] [facility] 5 16:47:47 Hyperglyc emia 19204483 Active 2022 Carmen peters[place], [place] [employer] [facility] [employer] [facility] 3 08:32:19 Increased liver function 56094398 Active 2023 Bakari bobo MD [address], [place], [address] , [employer] [facility] [employer] [facility] 5 12:32:42 Thyroid hormone tests outside reference range 893616070 Active 2024 Bakari bobo MD [address], [place], [address] , [employer] [facility] [employer] [facility] 5 12:32:43 Problem Notes None recorded. Procedures Surgical History Date Name Laterality Status Provider Name and Address Organization Details Recorded Time 11/01/19 25 Medicare Wellness CPT Code, subsequent completed Sonia Carolyne [facility] [employer] [facility] 10/30/2024 15:35:55 06/15/19 24 Medicare Wellness CPT Code, subsequent completed Aki Awan LPN [employer] 06/15/2023 17:27:20 06/15/19 24 Advanced Care Planning completed Aki Awan LPN [employer] 06/15/2023 17:31:02 Cholecystectomy completed Not Available [facility] 04/08/2022 03:20:17 Imaging Results None recorded. Procedure Notes None recorded. Medical Equipment None Reported. Allergies Allergen ID Allergen Name Allergen Category Reaction Reaction Severity Criticality Documentation Date Start Date Code Code System Note Provider Name and Address Organization Details Recorded Time 6452 codeine medicatio n respirato ry distress Not available Not available 04/08/2022 2670 RxNorm Not Available [facility] 03:39:21 Medications Name Sig Start Date Stop Date Status Note LastModified by Organization Details LastModified Time atorvastatin 10 mg tablet TAKE 1 TABLET BY MOUTH EVERY DAY 2024 active Not Available Not Available Not Avai lable nifedipine ER 30 mg tablet,extend ed release TAKE 1 TABLET BY MOUTH EVERY DAY 2024 active Not Available Not Available Not Avai lable peg-electroly te solution 420 gram oral solution 11/03 completed Not Available Not Available Not Available promethazine 25 mg tablet 11/03 completed Not Available Not Available Not Available calcium 2020 active Not Available Not Available Not Avai lable multivitamin qd 11/03 completed Not Available Not Available Not Available Vitamin B12 active Not Available Not A vailable Not Available Vitals Date Recorded Body height Body mass index (BMI) Body weight Body temperature Heart rate Systolic And Diastolic Provider Name and Address Organization Details Last Updated DateTime 5 163.83 cm 28.1 kg/m2 60879.3 3 g 97.8 [degF] 78 /min 120/70 mm[Hg] YONI Diallo [employer] 5 09:46:41 Date Recorded Body height Body mass index (BMI) Body weight Body temperature Heart rate Systolic And Diastolic Provider Name and Address Organization Details Last Updated DateTime 4 163.83 cm 27.5 kg/m2 48152.5 6 g 97.3 [degF] 78 /min 126/60 mm[Hg] Niurka BeeYONI cano [facility] [employer] [facility] 4 16:17:49 Date Recorded Pain severity - 0-10 verbal numeric rating [Score] - Reported Provider Name and Address Organization Details Last Updated DateTime 06/15/2023 0 Akijihan Awan LPN [facility] [employer] [facility] 06/15/2023 17:27:38 Date Recorded Body height Body mass index (BMI) Body weight Body temperature Heart rate Systolic And Diastolic Provider Name and Address Organization Details Last Updated DateTime 5 163.83 cm 28.2 kg/m2 50197.9 3 g 97.4 [degF] 78 /min 122/66 mm[Hg] Niurka March Jihan [facility] [employer] [facility] 5 10:47:55 Date Recorded Body height Body mass index (BMI) Body weight Body temperature Respiratory rate Oxygen saturation Oxygen saturation in Arterial blood by Pulse oximetry Heart rate Systolic And Diastolic Provider Name and Address Organization Details Last Updated DateTime 5 163.83 cm 27.7 kg/m2 51107.1 5 g 97.8 [degF] 16 /min 98 % 98 % 67 /min 130/72 mm[Hg] Sonia Barfield [facility] [employer] [facility] 5 12:08:31 Date Recorded Body height Body mass index (BMI) Body weight Heart rate Body temperature Oxygen saturation Oxygen saturation in Arterial blood by Pulse oximetry Pain severity - 0-10 verbal numeric rating [Score] - Reported Systolic And Diastolic Provider Name and Address Organization Details Last Updated DateTime 4 163.83 cm 28.4 kg/m2 44558.5 2 g 77 /min 98.1 [degF] 92 % 92 % 0 130/72 mm[Hg] Janet Seo MA [facility] [employer] [facility] 4 14:05:49 Social History Question Answer Notes LastModified by Organization Details LastModified Time Tobacco Smoking Status Never Smoker Not Available [employer] 04/08/2022 03:10:52 Do You Have An Advance Directive? No Information Provided To Patient [id number] Information not available 04/08/2022 Are You Blind Or Do You Have Difficulty Seeing? No [id number] Information not available 04/08/2022 What Is Your Level Of Caffeine Consumption? Moderate [id number] Information not available 04/08/2022 How Much Tobacco Do You Chew? None [id number] Information not available 04/08/2022 In The 14 Days Before Symptom Onset, Have You Had Close Contact With A Laboratory-conf irmed COVID-19 While That Case Was Ill? No [id number] Information not available 04/08/2022 In The 14 Days Before Symptom Onset, Have You Had Close Contact With A Person Who Is Under Investigation For COVID-19 While That Person Was Ill? No [id number] Information not available 04/08/2022 Are You Deaf Or Do You Have Serious Difficulty Hearing? No [id number] Information not available 04/08/2022 What Type Of Diet Are You Following? REGULAR [id number] Information not available 04/08/2022 Which Illicit Or Recreational Drugs Have You Used? None [id number] Information not available 04/08/2022 What Is The Highest Grade Or Level Of School You Have Completed Or The Highest Degree You Have Received? [id number] Information not available 04/08/2022 Have There Been Any Changes To Your Family Or Social Situation? No MIGRATION.0301 [id number] Information not available 04/08/2022 What Is The Fluoride Status Of Your Home? Unknown MIGRATION.0301 [id number] Information not available 04/08/2022 Are There Any Guns Present In Your Home? No MIGRATION.0301 [id number] Information not available 04/08/2022 Do You Use Insect Repellent Routinely? No MIGRATION.0301 263523 Information not available 04/08/2022 Where Do You Live? [place]House MIGRATION.0301 560561 Information not available 04/08/2022 Presence Of Domestic Violence No [email or web address] Information not available 06/15/2023 Guns Present In The Home? No [email or web address] Information not available 06/15/2023 Are You Able To Care For Yourself? Yes [email or web address] Information not available 06/15/2023 Are You Blind Or Do Yo Have Difficulty Seeing? No [email or web address] Information not available 06/15/2023 Are You Deaf Or Do You Have Serious Difficulty Hearing? No [email or web address] Information not available 06/15/2023 General Stress Level? Moderate [email or web address] Information not available 06/15/2023 Live Alone Of With Others? With Others Information not available 06/15/2023 Do You Have A Medical Power Of Senior Quality Technician? No MIGRATION.0301 [id number] Information not available 04/08/2022 What Was The Date Of Your Most Recent Tobacco Screening? 07/04/2024 [email or web address] Information not available 07/04/2024 Do You Have Any Pets? No MIGRATION.0301 [id number] Information not available 04/08/2022 What Is Your Relationship Status? MIGRATION.0301 624023 Information not available 04/08/2022 Do You Use Your Seat Belt Or Car Seat Routinely? Yes MIGRATION.0301 908874 Information not available 04/08/2022 Do You Have Smoke And Carbon Monoxide Detectors In Your Home? Yes MIGRATION.0301 732312 Information not available 04/08/2022 Are You Passively Exposed To Smoke? No MIGRATION.0301 589501 Information not available 04/08/2022 Are There Any Smokers In Your House? No MIGRATION.0301 739731 Information not available 04/08/2022 How Much Tobacco Do You Smoke? No MIGRATION.0301 906380 Information not available 04/08/2022 What Types Of Sporting Activities Do You Participate In? None MIGRATION.0301 933178 Information not available 04/08/2022 Do You Use Sunscreen Routinely? No MIGRATION.0301 171136 Information not available 04/08/2022 Has Tobacco Cessation Counseling Been Provided? No N/A [email or web address] Information not available 06/15/2023 How Many Years Have You Smoked Tobacco? 0 MIGRATION.0301 154013 Information not available 04/08/2022 Have You Recently Traveled Abroad? No MIGRATION.0301 144076 Information not available 04/08/2022 Do You Have Difficulty Walking Or Climbing Stairs? No MIGRATION.0301 111884 Information not available 04/08/2022 Do You Have Any Dietary Restrictions? No MIGRATION.0301 018955 Information not available 04/08/2022 Sex: Female Functional Status Question Answer Note LastModified by Organizat ion Details LastModified Time Do you or have you ever used smokeless tobacco? Never used smokeless tobacco MIGRATION.071181 6551 Information not available 04/08/2022 Are you currently employed? No [email or web address] Information not available 06/15/2023 Do you have transportation difficulties? No MIGRATION.082842 1391 Information not available 04/08/2022 Are you able to care for yourself independently? Yes MIGRATION.539772 9165 Information not available 04/08/2022 Do you have difficulty dressing, bathing, grooming, or toileting? No MIGRATION.164079 6968 Information not available 04/08/2022 Do you or have you ever used e-cigarettes or vape? Never used electronic cigarettes MIGRATION.860201 3440 Information not available 04/08/2022 What is your exercise level? Moderate MIGRATION.428711 2515 Information not available 04/08/2022 Do you use any illicit or recreational drugs? No MIGRATION.364292 1649 Information not available 04/08/2022 Do you or have you ever used any other forms of tobacco or nicotine? No MIGRATION.227281 1800 Information not available 04/08/2022 What is your level of alcohol consumption? None MIGRATION.781878 3291 Information not available 04/08/2022 Are you able to walk independently without assistance or assistive devices? YESWOREST MIGRATION.262400 3811 Information not available 04/08/2022 Do you have difficulty doing errands alone? No MIGRATION.943131 2565 Information not available 04/08/2022 What is your occupation? retired MIGRATION.632559 2726 Information not available 04/08/2022 Mental Status Question Answer Note LastModified by Organizat ion Details LastModified Time Do you feel stressed (tense, restless, nervous, or anxious, or unable to sleep at night)? CX11487-2 MIGRATION.[id number] 26 Information not available 04/08/2022 Do you have difficulty concentrating, remembering or making decisions? No MIGRATION.43626909 26 Information not available 04/08/2022 Family History Relationship Description Onset Age of this Age Resolved Age Notes LastModified by Organization Details LastModified Time Mother Heart disease 70 MIGRATION.564 [id number] Not available 04/08/2022 03:20:21 Father Heart disease 83 MIGRATION.559 [id number] Not available 04/08/2022 03:20:21 Father Diabetes mellitus MIGRATION.495 [id number] Not available 04/08/2022 03:20:21 Brother Malignant neoplastic disease deceas ed MIGRATION.783 [id number] Not available 04/08/2022 03:20:21 Brother Congestive heart failure 67 MIGRATION.276 2030992 Not available 04/08/2022 03:20:21 Medical History Condition Response NERVE DISEASE N BLINDNESS N RHEUMATIC FEVER N KIDNEY STONES N BLADDER PROBLEMS N MRSA N OTHER # 1 N POLIO N LUNG DISEASE/DISORDER N RADIATION / CHEMOTHERAPY N COPD N Other # 2 N BLOOD DISEASES N SURGERY N EAR OR HEARING PROBLEMS N MUMPS N BOWEL PROBLEMS N DEPRESSION (INCLUDING POST ) N STROKE/TIA N ULCERS N BENIGN PROSTATIC HYPERPLASIA N MEASLES N MYOCARDIAL INFARCTION N OBESITY N GERD/NAUSEA N ANEURYSM N URINARY/BLADDER/KIDNEY PROBLEMS N CORONARY ARTERY DISEASE (CAD) N ADDICTION CONCERNS N ENDOMETRIOSIS N Impotence N USE OF BLOOD THINNERS N SKIN PROBLEMS N GASTROINTESTINAL DISORDER N PERIPHERAL VASCULAR DISEASE N MUSCLE,JOINT OR BONE PROBLEMS N GASTROINTESTINAL BLEEDING N BLOOD CLOTS N ASTHMA N CATARACTS N ERECTILE DYSFUNCTION N VARICOSITIES N GI PROBLEMS N Low Testosterone N INFERTILITY N AIDS/HIV N CHEMOTHERAPY / RADIATION N LIVER DISEASE N MALE HYPOGONADISM N HYPERTENSION N Deficiency N ANXIETY DISORDER N BLOOD TRANSFUSION N ANEMIA/BLOOD DISORDER N CHRONIC EAR INFECTIONS N BRONCHITIS N TUBERCULOSIS N GLAUCOMA N FOOT PROBLEM N DIVERTICULITIS N SLEEP APNEA N CHICKENPOX N INFECTIOUS DISEASE N HEART ARRHYTHMIA N PROSTATE N INSOMNIA N HIGH CHOLESTEROL / HYPERLIPIDEMIA N HYPERTHYROIDISM N EYE PROBLEMS N NEUROLOGICAL PROBLEMS N EDEMA N CHRONIC PAIN SYNDROME N HYPOTHYROIDISM N CAROTID BLOCKAGE N CONSTIPATION N BACK / NECK PROBLEMS N HAVE YOU BEEN HOSPITALIZED OR SEEN IN [facility] IN THE PAST YEAR ? N ATHEROSCLEROSIS N BREAST PROBLEMS N DIALYSIS N ECZEMA N OSTEOPOROSIS N ARTHRITIS N APPENDICITIS N DIABETES, TYPE N BAD TEETH N ENT N HEARTBURN / REFLUX N AUTISM SPECTRUM DISORDER (ASD) N HEPATITIS / LIVER DISEASE N GOUT N SLEEP DISORDER N ALZHEIMER'S DISEASE N Brain Problems N HERPES N DEMENTIA N HEADACHES/MIGRAINES N SEIZURES/EPILEPSY N VASCULAR DISEASE N PACEMAKER N Blood Disorder N DIZZINESS N HEART DISEASE/HEART PROBLEMS N KIDNEY DISEASE N MULTIPLE SCLEROSIS N CARDIAC ARRHYTHMIA N CANCER: SPECIFY N ATRIAL FIBRILLATION N Gall Stones N PULMONARY EMBOLISM N AUTOIMMUNE DISEASE N Gynecological History Statement/Question Response How many live births 1 Date of Last Pap Date of Last Mammogram 09/29/2019 Date of Last Colonoscopy Most Recent Bone Density Date of LMP Obstetrics History GPAL:G 1 P 1 0 0 1 Type Value Multiple Births 0 Full Term 1 Induced 0 Spontaneous 0 Premature 0 Living 1 Ectopics 0 Total 1 Immunizations Vaccine Type Date Status Note Provider Nam e and Address Organization Details Recorded Time zoster recombinant 3 completed Not Available [facility] 10/31/2024 11:29:47 RSV, bivalent, protein subunit RSVpreF, diluent reconstituted, 0.5 mL, PF 3 completed Not Available [facility] 10/31/2024 11:29:47 zoster recombinant 4 completed Not Available [facility] 10/31/2024 11:29:47 COVID-19, mRNA, LNP-S, PF, 100 mcg/0.5mL dose or 50 mcg/0.25mL dose 1 completed Not Available [facility] 07/08/2022 14:12:45 COVID-19, mRNA, LNP-S, PF, 100 mcg/0.5mL dose or 50 mcg/0.25mL dose 1 completed Not Available [facility] 07/08/2022 14:12:45 COVID-19, mRNA, LNP-S, PF, 100 mcg/0.5mL dose or 50 mcg/0.25mL dose 1 completed Not Available [facility] 07/08/2022 14:12:45 Pneumococcal conjugate PCV20, polysaccharide [id number] conjugate, adjuvant, PF 3 completed Bakari Bridges MD [address] [facility], [place], [address], [facility] [employer] 12/08/2022 17:45:35 Influenza, high-dose, trivalent, PF 4 completed Bakari Bridges MD [address] [facility], [place], [address], [place] - [facility] [employer] 11/08/2023 18:16:36 Past Encounters Encounter ID Performer Location Encounter Start Date Encounter Closed Date Diagnosis/Indication Diagnosis SNOMED-CT Code Diagnosis ICD10 Code Diagnosis IMO Codes Diagnosis Note [id number] Syed Garza MD [facility] Med [address] [facility] [address] [place] [address] 05/14/2020 00:00:00 05/14/2020 14:42:15 [id number] Syed Garza MD [facility] Internal Med [facility] [address] [facility] 15 [place] [address] 1 11/12/2020 00:00:00 11/12/2020 21:53:07 [id number] Syed Garza MD [facility] Internal Med [facility] [address] [place] [address] [address] [place] [address] 1 05/13/2021 00:00:00 05/31/2021 16:25:52 [id number] Syed Garza MD [facility] Internal Med [facility] [address] [facility] [address] [facility] [address] [place] [address] 1 11/11/2021 00:00:00 11/11/2021 14:36:30 [id number] Syed Garza MD [facility] Internal Med [facility] [address] [facility] [address] [facility] [address] [place] [address] 1 03/04/2022 00:00:00 03/04/2022 22:56:35 [id number] Syed Garza MD [facility] Internal Med [facility] [address] [facility] [address] [facility] [address] [place] [address] 1 03/18/2022 00:00:00 03/18/2022 21:08:15 [id number] Syed Garza MD S_[facility] Internal Med [facility] [address] [facility] [place] [address] 1 05/12/2022 15:17:32 05/12/2022 15:55:47 Dyslipidemia 465083599 E78.5 Essential hypertension 98612753 I10 [id number] Bakari bobo MD S_G Internal Med [facility] [address] [place], [place] [address]., [place] [address] 1 12/08/2022 11:51:08 12/08/2022 13:12:38 Screening - NAD 239310059 Z13.9 C-scope: Sees CHANDLER Figueroa Mammogram: Get thisDEXA: Get thisPAP: Get this done Get yearly flu shot, tdap if not doneGet COVID 19 vaccineGet ShingrixDe clines but will do the PCV Get RSV vaccine RTC in 3 months, do labs, ER if worse, she did verbalize her understand ing of the above Screening for malignant neoplasm of colon 723226624 Z12.11 Screening for malignant neoplasm of breast 088627474 Z12.39 Screening for osteoporosis 494379747 Z13.820 Z78.0 Essential hypertension 79635518 I10 On nifedipine ER 30mg dailyGet labs Hyperlipidemia 25403447 E78.5 On atorvastat in 10mg dailyGet labs Vitamin D deficiency 347 02614 E55.9 Serum moiz min B12 below reference range 850780841 R79.89 Gynecologi c examination 01517785 Z01.419 Administra tion of pneumococcal vaccine 68251281 Z23 Screening mammography 24 411776 Z12.31 [id number] Bakari bobo MD [facility] Internal Med [facility] [address] [facility] [facility] [address] [place] [address] 06/15/2023 15:55:06 06/15/2023 17:18:04 Screening - NAD 240809919 Z13.9 C-scope: Sees GI Dr Figueroa last 11/05/2018 , next in 5 years , referred 06/14/2022 Mammogram/ DEXA: 04/23/2023 : Neg PAP: Get this done Get yearly flu shot, tdap if not doneGet COVID 19 vaccineGet ShingrixDe clines but will do the PCVCan do RSV vaccine Get RSV vaccine RTC in 3 months, do labs, ER if worse, she did verbalize her understand ing of the above Screening for malignant neoplasm of colon 386372875 Z12.11 Essential hypertension 03682313 I10 On nifedipine ER 30mg dailyGet labs Hyperlipidemia 90992604 E78.5 On atorvastat in 10mg dailyGet labs Vitamin D deficiency 347 71791 E55.9 Serum moiz min B12 below reference range 188234325 R79.89 Gynecologi c examination 05337050 Z01.419 Increased liver function 29972551 R94.5 Get labs Adult heal th examination 409901654 Z00.00 Screening for disorder 676896836 Z13.9 [id number] Bakari bobo MD [facility] Internal Med [place] [address] [address] 11/04/2023 13:50:53 11/04/2023 14:53:45 Screening - NAD 654263621 Z13.9 C-scope: Ninoska Figueroa last 11/05/2018 , next in 5 years , referred 06/14/2022 Mammogram/ DEXA: 04/23/2023 : Neg PAP: Get this done Get yearly flu shot, tdap if not doneGet COVID 19 vaccineGet ShingrixDe clines but will do the PCVCan do RSV vaccine Get RSV vaccine RTC in 3 months, do labs, ER if worse, she did verbalize her understand ing of the above Screening for malignant neoplasm of colon 702428273 Z12.11 Essential hypertension 32885880 I10 On nifedipine ER 30mg dailyGet labs Hyperlipidemia 17125003 E78.5 On atorvastat in 10mg dailyGet labs Vitamin D deficiency 347 19932 E55.9 Serum moiz min B12 below reference range 552464385 R79.89 Gynecologi c examination 24034402 Z01.419 Increased liver function 44361226 R94.5 US liver: 06/30/2023 : hepatic steatosis Administra tion of influenza vaccine 82905724 Z23 [id number] Bakari bobo MD S_[facility] Internal Med [facility] [address] [address] 02/22/2024 09:38:31 02/22/2024 10:30:25 Screening - NAD 123401924 Z13.9 C-scope: Ninoska Figueroa last 11/05/2018 , 08/17/2023 Mammogram/ DEXA: 04/23/2023 : Neg PAP: Get this done Get yearly flu shot, tdap if not doneGet COVID 19 vaccineGet ShingrixDe clines but will do the PCVCan do RSV vaccine Get RSV vaccine RTC in 3 months, do labs, ER if worse, she did verbalize her understand ing of the above Essential hypertension 28478157 I10 On nifedipine ER 30mg dailyGet labs Hyperlipidemia 55711124 E78.5 On atorvastat in 10mg dailyGet labs Vitamin D deficiency 347 80924 E55.9 Serum moiz min B12 below reference range 051724604 R79.89 Gynecologi c examination 51470896 Z01.419 Increased liver function 12768939 R94.5 US liver: 06/30/2023 : hepatic steatosis Screening mammography 24 406873 Z12.[id number] [facility] Internal Med [facility] [address] [facility] 15 [place] [address] 07/04/2024 10:30:22 07/04/2024 11:26:07 Screening - NAD 693268064 Z13.9 C-scope: Sees CHANDLER Figueroa last 11/05/2018 , 08/17/2023 Mammogram/ DEXA: 04/23/2023 : Neg PAP: Get this done Get yearly flu shot, tdap if not doneGet COVID 19 vaccineGet ShingrixDe clines but will do the PCVCan do RSV vaccine Get RSV vaccine RTC in 3 months, do labs, ER if worse, she did verbalize her understand ing of the above Essential hypertension 24733024 I10 On nifedipine ER 30mg dailyGet labs Hyperlipidemia 77140254 E78.5 On atorvastat in 10mg dailyDecli vonda any new meds or dose increase, states that she has been eating a lot of fried foods and will cut back on thisGet labs Vitamin D deficiency 347 67062 E55.9 Serum moiz min B12 below reference range 455364658 R79.89 Gynecologi c examination 67306425 Z01.419 Increased liver function 37596923 R94.5 US liver: 06/30/2023 : hepatic steatosis Screening mammography 24 407451 Z12.31 [id number] Bakari bobo MD [facility] Internal Med [facility] [address] [facility], [facility] 15 [place] [address] 10/31/2024 11:28:33 10/31/2024 12:56:16 Adult health examination 309108875 Z00.00 Screening for disorder 637159300 Z13.9 Screening - NAD 17266700 3 Z13.9 C-scope: Sees CHANDLER Figueroa last 11/05/2018 , 08/17/2023 Mammogram/ DEXA: 04/23/2023 : Neg, 05/2024: Neg DEXA: 04/23/2023 : Negative PAP: Get this done Get yearly flu shot, tdap if not doneGet COVID 19 vaccineUTD ShingrixDe clines but will do the PCVUTD RSV vaccine RTC in 3 months, do labs, ER if worse, she did verbalize her understand ing of the above Essential hypertension 05088178 I10 On nifedipine ER 30mg dailyGet labs Hyperlipidemia 97250642 E78.5 On atorvastat in 10mg dailyDecli vonda any new meds or dose increase, states that she has been eating a lot of fried foods and will cut back on thisGet labs Vitamin D deficiency 347 01970 E55.9 Serum moiz min B12 below reference range 424315623 R79.89 Gynecologi c examination 13019094 Z01.419 Increased liver function 25169381 R94.5 US liver: 06/30/2023 : hepatic steatosisD oes not want any referrals Thyroid ho rmone tests outside reference range 592163888 R79.89 [id number] Declined any US or medication s Health Concerns Section Related Observation LastModified by Organization Detai ls LastModified Time None Recorded Concern Status LastModified by Organization Details LastModified Time None Recorded Advance Directives Directive N: information provided to p atient Payers Insurance Date Sequence Insurance Name Policy Number Policy Walton Covered Member ID Walton Member ID Guarantor Name 10/28/2024 1 [facility] - MEDICARE COMPLETE FOCUS PLAN (MEDICARE REPLACEMENT HMO) [id number] Maeve Garcia [id number] Maeve Garcia Notes Date Note Type Note Provider Name and Address Organization Details Recorded Time 06/15/2023 text/html OV 12/08/2022:Here to establish carePast PMD: Dr Garza Past Hx:[email or web address] Reviewed social family and surgical historyHere to discuss above and get labs, here with her and does well today OV 06/15/2023:Here for her f/u apt, she is doing very well she is here with her Bakari Bridges MD [address] [facility], [place], [address], [place] [facility] [employer] 06/15/2023 18:18:49 11/04/2023 text/html OV 12/08/2022:Here to establish carePast PMD: Dr Garza Past Hx:[id number] Reviewed social family and surgical historyHere to discuss above and get labs, here with her and does well today OV 06/15/2023:Here for her f/u apt, she is doing very well she is here with her OV 11/04/2023: Here for her f/u apt, she is doing well at this time, here with her Bakari Bridges MD [address] [facility], [place], [address], [facility] [employer] 11/08/2023 18:18:47 02/22/2024 text/html OV 12/08/2022:Here to establish carePast PMD: Dr Garza Past Hx:[id number] Reviewed social family and surgical historyHere to discuss above and get labs, here with her and does well today OV 06/15/2023:Here for her f/u apt, she is doing very well she is here with her OV 11/04/2023: Here for her f/u apt, she is doing well at this time, here with her OV 02/22/2024: Here for her f/u apt, she is doing well, she is here with her Bakari Bridges MD [address] [facility], [place], [address], [employer] 03/08/2024 18:06:11 07/04/2024 text/html OV 12/08/2022:Here to establish carePast PMD: Dr Garza Past Hx:HTNHLAmish Reviewed social family and surgical historyHere to discuss above and get labs, here with her and does well today OV 06/15/2023:Here for her f/u apt, she is doing very well she is here with her OV 11/04/2023: Here for her f/u apt, she is doing well at this time, here with her OV 02/22/2024: Here for her f/u apt, she is doing well, she is here with her O V007/04/2024: Here for her f/u apt, she feels well today and is here with her Bakari Bridges MD [address], [place], [address], [employer] 07/04/2024 17:14:44 10/31/2024 text/html OV 12/08/2022:Here to establish carePast PMD: Dr Garza Past Hx:HTNHLD Reviewed social family and surgical historyHere to discuss above and get labs, here with her and does well today OV 06/15/2023:Here for her f/u apt, she is doing very well she is here with her OV 11/04/2023: Here for her f/u apt, she is doing well at this time, here with her OV 02/22/2024: Here for her f/u apt, she is doing well, she is here with her O 07/04/2024: Here for her f/u apt, she feels well today and is here with her OV 10/31/2024: Here for her f/u apt, she is here for her MWV Bakari Bridges MD [address], [place], [address], [employer] 10/31/2024 18:14:42 OBGyn Episode No OBEpisode recorded.
[2024-12-13] MEDS: ACETAMINOPHEN 500 MG TABLET 1000 MG PO (09:09)
[2024-12-13 09:16] LABS: Hematocrit 39.1 % (37.0-47.0); Hemoglobin 13.4 g/dL (12.0-15.0); Immature Granulocyte Percent A 0.2 % (0-0.5); Lymphocytes Absolute Auto 1.70 K/mm3 (0.9-3.2); Mean Corpuscular HGB Conc 34.3 g/dl (32-36); Mean Corpuscular Hemoglobin 30.8 pg (26-34); Mean Corpuscular Volume 89.9 fl (80-100); Nucleated Red Blood Cells Absolute Auto 0.000 K/mm3 (0.0-0.012); Nucleated Red Blood Cells Perc 0.0 % (0.0-0.2); Platelet Count Result 235 k/mm3 (150-375); Red Blood Count 4.35 M/mm3 (4.2-5.4); White Blood Count 5.1 K/mm3 (4.5-10.0)
[2024-12-13 09:28] LABS: INR 1.0; Partial Thromboplastin Time 27.9 Seconds (22.3-36.8); Prothrombin Time 13.0 Seconds (11.1-14.7)
[2024-12-13 09:29] LABS: Alanine Aminotransferase 16 U/L (6-35); Albumin Level 4.6 g/dL (3.5-5.1); Alkaline Phosphatase 53 U/L (38-126); Anion Gap 7 mmol/L (4-12); Aspartate Amino Transferase 26 U/L (14-36); Bilirubin,Total 1.1 mg/dL (0.2-1.3); Blood Urea Nitrogen 14 mg/dL (7-17); Calcium 9.1 mg/dL (8.4-10.2); Carbon Dioxide 24 mmol/L (22-30); Chloride 106 mmol/L (98-107); Creatine Kinase 125 U/L (30-135); Estimated CRCL calculation 66 ml/min; Estimated Glomerular Filt Rate > 60; Glucose 102 mg/dL (65-110); Magnesium 1.9 mg/dL (1.6-2.3); Potassium 3.4 mmol/L (3.4-5.0); Sodium 137 mmol/L (137-145); Total Protein 7.9 g/dL (6.3-8.2)
[2024-12-13 09:36] LABS: NT Pro B Type Natriuretic Pept 213 pg/mL (19.9-100)
[2024-12-13 09:46] VITALS: BP 179/64; PULSE 74; RESP 18; O2SAT 96
[2024-12-13] MEDS: KETOROLAC 30 MG/ML VIAL (*BKC) 15 MG IM (10:07)
[2024-12-13] MEDS: MORPHINE SULFATE (*CRX) 4 MG/ML INJ 2 MG IV PUSH (11:41)
== END 2024-12-13 14:12 | disposition home or self-care (01) ==
PROVIDERS: Emergency Provider Student in an Organized Health Care Education/Training Program; PCP Internal Medicine
DX: M79.662 Pain in left lower leg (principal); Z79.899 Other long term (current) drug therapy
CPT/HCPCS: 36415; 75635; 80053; 82550; 83735; 83880; 85025; 85610; 85730; 93971; 96372; 96374; 99284; A9270; J1885; J2270; Q9967